=== PATIENT | female | born 1980 | race American Indian/Alaskan Native ===

== ENCOUNTER 2018-09-28 09:17 | Inpatient (IN) | payer MEDICAID, MEDICARE, OTHER ==
[2018-09-28] MEDS ORDERED: NACL 0.9% 1000 ML 1,000 ML IV ONE ×2 (09:39→11:48)
[2018-09-28 10:13] LABS: Mean Corpuscular HGB Conc 28 % (30-34); Mean Corpuscular Volume 102 fl (79-97); Platelet Count 602 K/mm3 (140-440); Red Blood Count 4.99 M/mm3 (3.65-5.03); Red Cell Distribution Width 15.5 % (13.2-15.2)
[2018-09-28 10:17] LABS: Hematocrit 51.1 % (30.3-42.9); Hemoglobin 14.4 gm/dl (10.1-14.3)
[2018-09-28 10:31] LABS: Albumin 4.2 g/dL (3.9-5); Calcium 9.2 mg/dL (8.4-10.2)
[2018-09-28] MEDS ORDERED: D50W (25GM) Syringe IV PRN ×3 (10:44→11:50)
--- NOTE | 2018-09-28 10:57 | Emergency Department Report ---
HPI - General Chief Complaint: Hyperglycemia Time Seen by Provider: 09/28/18 09:34 - HPI HPI: 38-year-old demented female presents to the emergency department via EMS secondary to altered mental status and elevated blood sugar. The patient has never been here before and it is unknown whether she has any past medical history. However there is some to triage notes say that she has a history of diabetes and hypertension. Accu-Chek was critical high. Patient is awake but is completely altered and therefore is a poor historian. ED Past Medical Hx - Past Medical History Previous Medical History?: Yes Hx Hypertension: Yes Hx Diabetes: Yes - Surgical History Past Surgical History?: No - Social History Smoking Status: Unknown if ever smoked ED Review of Systems ROS: Stated complaint: DKA Other details as noted in HPI Comment: Unobtainable due to pts medical conditions Physical Exam - Physical Exam Vital Signs: Vital Signs 09/28/18 09/28/18 09/28/18 09:22 09:30 09:46 Pulse Rate 124 H 130 H Respiratory 18 32 H Rate Blood Pressure 166/95 166/95 O2 Sat by Pulse 98 98 Oximetry 09/28/18 09/28/18 09/28/18 10:00 10:16 10:32 Pulse Rate 128 H 126 H 107 H Respiratory 27 H 31 H 26 H Rate Blood Pressure 166/95 166/95 166/95 O2 Sat by Pulse 98 98 Oximetry 09/28/18 10:46 Pulse Rate 126 H Respiratory 28 H Rate Blood Pressure 136/53 O2 Sat by Pulse 100 Oximetry Physical Exam: GENERAL: Patient is ill-appearing and confused. HEENT: Normocephalic. Atraumatic. Patient has moist mucous membranes. EYES: Extraocular motions are intact. Pupils are equal and reactive to light bilaterally. NECK: Supple. Trachea is midline. CHEST/LUNGS: Clear to auscultation. There is no respiratory distress noted. HEART/CARDIOVASCULAR: Regular. There is moderate tachycardia. There is no obvious murmur. ABDOMEN: Abdomen is soft, nontender. Patient has normal bowel sounds. Obese habitus. SKIN: Skin is warm and dry. NEURO: Patient is awake but confused. Withdraws from painful stimuli. MUSCULOSKELETAL: There is no tenderness or deformity. There is no limitation range of motion. There is no evidence of acute injury. ED Course Vital Signs 09/28/18 09/28/18 09/28/18 09:22 09:30 09:46 Pulse Rate 124 H 130 H Respiratory 18 32 H Rate Blood Pressure 166/95 166/95 O2 Sat by Pulse 98 98 Oximetry 09/28/18 09/28/18 09/28/18 10:00 10:16 10:32 Pulse Rate 128 H 126 H 107 H Respiratory 27 H 31 H 26 H Rate Blood Pressure 166/95 166/95 166/95 O2 Sat by Pulse 98 98 Oximetry 09/28/18 10:46 Pulse Rate 126 H Respiratory 28 H Rate Blood Pressure 136/53 O2 Sat by Pulse 100 Oximetry - Central Line Placement Right Femoral Consent Obtained: emergent situation Time Out Performed: Yes Patient Placed on Monitor/Pulse Ox: Yes MD Prep: mask, gown, gloves Central Line Prep: Chlorhexidine scrub Local Anesthesia Used: Lidocaine 1% Amount of Anesthesia Used (mls): 3 Ultrasound Used for Placement: Yes Central Line Lumen Inserted: triple Bloods Obtained for Lab: Yes Central Line Position: good blood return, all ports aspirated, flus, sutured in place with nyl Dressing Applied: Tegaderm, sterile gauze/tape Patient Tolerated Procedure: well Complications: none ED Medical Decision Making - Lab Data Result diagrams: 09/28/18 09:49 09/28/18 12:44 - EKG Data -: EKG Interpreted by Me EKG shows normal: sinus rhythm, axis, intervals (prolonged QTC), QRS complexes, ST-T waves (early repolarization) Rate: tachycardia (130 bpm) - EKG Data When compared to previous EKG there are: previous EKG unavailable Interpretation: other (sinus tachycardia, prolonged QTC, repolarization to the septal leads) - Radiology Data Radiology results: image reviewed interpreted by me: Chest x-ray does not show any pneumothorax, pleural effusion, pneumonia or obvious focal consolidation. - Medical Decision Making Patient presents with altered mental status and elevated blood sugar seen on Accu-Chek. Patient has a venous pH of 6.85, blood sugar greater than 1000, elevated anion gap of almost 50, hyperkalemia with potassium of 8.1 and an ammonia 111. A central line was placed for further venous access. Patient was started on insulin drip. Blood cultures were sent and patient started on antibiotics empirically with a 29,000 white count. The patient has been admitted to the ICU and has been accepted for admission by the hospitalist, Dr. Kevin. The stiff straw hat washer, Dr. Prince, has been notified. Critical Care Time: Yes Critical care time in (mins) excluding proc time.: 35 Critical care attestation.: If time is entered above; I have spent that time in minutes in the direct care of this critically ill patient, excluding procedure time. Critical care time was spent on this patient and doing her initial evaluation, multiple evaluations, ordering interpretation of labs and imaging, ordering of insulin drip, IV fluid resuscitation. This does not include the time spent doing the central line procedure. Critical Care Time: 35 minutes ED Disposition Clinical Impression: Hyperkalemia, Hyperammonemia, SIRS (systemic inflammatory response syndrome) Diabetic ketoacidosis Qualifiers: Diabetes mellitus type: type 1 Diabetes mellitus complication detail: without coma Qualified Code(s): E10.10 - Type 1 diabetes mellitus with ketoacidosis without coma Altered mental status Qualifiers: Altered mental status type: transient alteration of awareness Qualified Code(s): R40.4 - Transient alteration of awareness Leukocytosis Qualifiers: Leukocytosis type: unspecified Qualified Code(s): D72.829 - Elevated white blood cell count, unspecified Disposition: DC-09 OP ADMIT IP TO THIS HOSP Is pt being admited?: Yes Condition: Serious Time of Disposition: 14:08
[2018-09-28 11:14] LABS: Myelocytes # (Manual) 0.3 K/mm3; Total Cells Counted 100
[2018-09-28 11:15] LABS: Eosinophils % (Manual) 0 % (0.0-4.3)
[2018-09-28 11:16] LABS: Platelet Estimate Consistent w Auto; RBC Morphology Normal
[2018-09-28] MEDS ORDERED: HumuLIN R 100 UNITS in NACL 0.9% 99 ML IV SCH ×2 (11:30→12:00)
[2018-09-28] MEDS ORDERED: CALCIUM GLUCONATE 1,000 MG in NACL 0.9% 100 ML IV ONE (11:30)
[2018-09-28] MEDS ORDERED: NACL 0.9% 1000 ML 4,000 ML IV ONE (11:50)
[2018-09-28] MEDS ORDERED: SODIUM CHLORIDE FLUSH SYRINGE 10 ML IV PRN (11:50)
--- NOTE | 2018-09-28 11:53 | History and Physical Report ---
History of Present Illness Chief complaint: confused History of present illness: 38 YO Female with DM, HTN present to ED for evaluation. Pt is confused and stuporous and unable to provide history. Pt history taken from EMS, and ED staff. As per staff, EMS notified for confusion. Upon arrival patient found to be confused with elevated blood glucose level. Pt transported to [facility] for further care and evaluation. Pt seen and evaluated in ED and found to have DKA, Sepsis, Encophalopathy, Acidosis, and Acute Renal Failure. Pt admitted to ICU and initiated on Sepsis and DKA protocols. No further history obtainable. Past History Past Medical History: diabetes, hypertension Past Surgical History: No surgical history, Other (reviewed) Social history: single Family history: diabetes, hypertension Medications and Allergies Allergies Allergy/AdvReac Type Severity Reaction Status Date / Time No Known Allergies Allergy Unverified 09/28/18 10:50 Home Medications Medication Instructions Recorded Confirmed Last Taken Type Unobtainable 09/28/18 09/28/18 Unknown History Active Meds: Active Medications Dextrose (D50w (25gm) Syringe) 0 ml IV PRN PRN PRN Reason: Hypoglycemia Calcium Gluconate 1,000 mg/ (Sodium Chloride) 110 mls @ 220 mls/hr IV ONCE ONE Stop: 09/28/18 11:59 Insulin Human Regular 100 (units/ Sodium Chloride) 100 mls @ 7 mls/hr IV TITR JL; Protocol Sodium Chloride (Nacl 0.9% 1000 Ml) 1,000 mls @ 999 mls/hr IV BOLUS ONE Stop: 09/28/18 12:48 Review of Systems ROS unobtainable: due to mental status Exam - Constitutional Vitals: Temp Pulse Resp BP Pulse Ox 126 H 28 H 136/53 100 09/28/18 10:46 09/28/18 10:46 09/28/18 10:46 09/28/18 10:46 General appearance: Present: severe distress - EENT Eyes: Present: miosis - Neck Neck: Present: supple, normal ROM - Respiratory Respiratory effort: labored Respiratory: bilateral: diminished, rhonchi - Cardiovascular Rhythm: other (tachycardia) Heart Sounds: Present: S1 & S2. Absent: rub, click - Extremities Extremities: pulses symmetrical, No edema Peripheral Pulses: abnormal (capillary refill greater than 3.5 seconds) - Abdominal General gastrointestinal: Present: soft, non-tender, non-distended, normal bowel sounds Female genitourinary: Present: normal - Integumentary Integumentary: Present: clear, dry, clammy, decreased turgor - Musculoskeletal Musculoskeletal: generalized weakness - Psychiatric Psychiatric: no appropriate mood/affect, no intact judgment & insight, no memory intact, no cooperative - Neurologic Neurologic: moves all extremities, no gait normal Results - Labs CBC & Chem 7: 09/28/18 09:49 09/28/18 16:57 Labs: Abnormal lab results 09/28/18 09/28/18 09/28/18 Range/Units 09:49 09:49 09:49 WBC 29.7 H (4.5-11.0) K/mm3 Hgb 14.4 H (10.1-14.3) gm/dl Hct 51.1 H (30.3-42.9) % MCV 102 H (79-97) fl MCHC 28 L (30-34) % RDW 15.5 H (13.2-15.2) % Plt Count 602 H (140-440) K/mm3 Seg Neuts % (Manual) 83.0 H (40.0-70.0) % Lymphocytes % (Manual) 8.0 L (13.4-35.0) % Seg Neutrophils # Man 24.7 H (1.8-7.7) K/mm3 Monocytes # (Manual) 2.1 H (0.0-0.8) K/mm3 Basophils # (Manual) 0.3 H (0.0-0.1) K/mm3 VBG pH (7.320-7.420) Sodium 126 L (137-145) mmol/L Potassium 8.2 H* (3.6-5.0) mmol/L Chloride 81.7 L (98-107) mmol/L Carbon Dioxide 4 L* (22-30) mmol/L BUN 31 H (7-17) mg/dL Creatinine 1.9 H (0.7-1.2) mg/dL Glucose 1000 H* (65-100) mg/dL Phosphorus (2.5-4.5) mg/dL Ammonia 114.0 H (25-60) umol/L Total Protein 8.5 H (6.3-8.2) g/dL 09/28/18 09/28/18 Range/Units 09:49 11:03 WBC (4.5-11.0) K/mm3 Hgb (10.1-14.3) gm/dl Hct (30.3-42.9) % MCV (79-97) fl MCHC (30-34) % RDW (13.2-15.2) % Plt Count (140-440) K/mm3 Seg Neuts % (Manual) (40.0-70.0) % Lymphocytes % (Manual) (13.4-35.0) % Seg Neutrophils # Man (1.8-7.7) K/mm3 Monocytes # (Manual) (0.0-0.8) K/mm3 Basophils # (Manual) (0.0-0.1) K/mm3 VBG pH 6.874 L* (7.320-7.420) Sodium (137-145) mmol/L Potassium (3.6-5.0) mmol/L Chloride 74.8 L (98-107) mmol/L Carbon Dioxide (22-30) mmol/L BUN 31 H (7-17) mg/dL Creatinine 1.8 H (0.7-1.2) mg/dL Glucose (65-100) mg/dL Phosphorus 9.70 H (2.5-4.5) mg/dL Ammonia (25-60) umol/L Total Protein (6.3-8.2) g/dL Assessment and Plan - Patient Problems (1) Sepsis Current Visit: Yes Status: Acute Qualifiers: Sepsis type: sepsis due to unspecified organism Qualified Code(s): A41.9 - Sepsis, unspecified organism Plan to address problem: IV antibiotic therapy, IVF resuscitation therapy, CBC, CMP, Chest x ray, urinalysis, monitor uop q shift, serial lactic acid level (2) Acidosis Current Visit: Yes Status: Acute Plan to address problem: IVF resuscitation therapy, serial lactic acid, IV bicarbonate therapy (3) Diabetic ketoacidosis Current Visit: Yes Status: Acute Qualifiers: Diabetes mellitus type: type 1 Diabetes mellitus complication detail: without coma Qualified Code(s): E10.10 - Type 1 diabetes mellitus with ketoacidosis without coma Plan to address problem: DKA protocol: Insulin drip, IVF resuscitation therapy, serial bmp, monitor anion gap, monitor uop q shift, The high probability of a clinically significant, sudden or life threatening deterioration of the [Endocrine, neuro, respiratory, renal] system(s) required my full and direct attention, intervention and personal management. The aggregate critical care time was [65] minutes. This time is in addition to time spent performing reported procedures but includes the following: [x] Data Review and interpretation [x] Patient assessment and monitoring of vital signs [x] Documentation [x] Medication orders and management (4) DVT prophylaxis Current Visit: Yes Status: Acute Plan to address problem: SCD to BLE while in bed
[2018-09-28] MEDS ORDERED: NACL 0.9% 1000 ML IV ONE (11:54)
[2018-09-28] MEDS ORDERED: LEVAQUIN 750MG/150ML 750 MG/150 ML BAG IV ONE (11:54)
[2018-09-28] MEDS ORDERED: VANCOMYCIN 1,500 MG in NACL 0.9% 500 ML 500 ML IV ONE (11:54)
[2018-09-28] MEDS ORDERED: SODIUM BICARBONATE IV ONE ×4 (11:56→21:00)
--- NOTE | 2018-09-28 12:25 | XRay Report ---
AP CHEST: HISTORY: Dyspnea AP view of the chest demonstrates a normal mediastinal and cardiac contour with clear lungs and normal bony and soft tissue structures. IMPRESSION: Unremarkable AP chest.
[2018-09-28] MEDS ORDERED: ROCEPHIN/NS 1 GM/50 ML 1 GM/50 ML BAG IV ONE (12:30)
[2018-09-28 12:32] LABS: Blood Urea Nitrogen TNR mg/dL (7-17)
[2018-09-28 12:33] LABS: BUN/Creatinine Ratio TNR; Calcium TNR mg/dL (8.4-10.2); Hemolysis Index TNR
[2018-09-28 13:21] LABS: Calcium 7.9 mg/dL (8.4-10.2)
[2018-09-28 13:23] LABS: Bacteria,Urine 1+ /HPF (Negative); Bilirubin,Urine NEG (Negative); Blood,Urine SM (Negative); Color,Urine Straw (Yellow); Mucus,Urine FEW /HPF; RBC,Urine < 1.0 /HPF (0.0-6.0); Urobilinogen,Urine < 2.0 mg/dL (<2.0)
[2018-09-28] MEDS ORDERED: NACL 0.9% 1000 ML 4,000 ML ONE (13:28)
[2018-09-28 13:34] LABS: Amphetamine Screen,Urine PRESUMPTIVE NEGATIVE; Benzodiazepines Screen,Urine PRESUMPTIVE NEGATIVE; Cannabinoid Screen,Urine PRESUMPTIVE NEGATIVE; Cocaine Screen,Urine PRESUMPTIVE NEGATIVE; Methadone Screen,Urine PRESUMPTIVE NEGATIVE; Opiate Screen,Urine PRESUMPTIVE NEGATIVE
[2018-09-28] MEDS ORDERED: ZOFRAN IV ONE (13:49)
[2018-09-28] MEDS ORDERED: ZOFRAN ONE (13:52)
[2018-09-28 14:23] LABS: Calcium 6.8 mg/dL (8.4-10.2)
--- NOTE | 2018-09-28 14:45 | Consultation ---
History of Present Illness Consult date: 09/28/18 Requesting physician: MARISA PINEDA Reason for consult: other (DKA; EVELIN; Hyperkalemia) History of present illness: PULMONARY/CCM CONSULT NOTE (Full dictation # [id number]) Please see dictated notes for full details Medications and Allergies Allergies Allergy/AdvReac Type Severity Reaction Status Date / Time No Known Allergies Allergy Unverified 09/28/18 10:50 Active Meds: Active Medications Dextrose (D50w (25gm) Syringe) 0 ml IV PRN PRN PRN Reason: Hypoglycemia Dextrose (D50w (25gm) Syringe) 0 ml IV ONCE PRN PRN Reason: Hypoglycemia Insulin Human Regular 100 (units/ Sodium Chloride) 100 mls @ 7 mls/hr IV TITR JL; Protocol Sodium Chloride (Nacl 0.9% 1000 Ml) 4,000 mls @ 999 mls/hr IV BOLUS ONE Stop: 09/28/18 15:50 Last Admin: 09/28/18 13:34 Dose: 999 mls/hr Documented by: Aztreonam (Azactam/Ns 1 Gm/50 Ml) 1 gm in 50 mls @ 50 mls/hr IV Q8HR JL; Protocol Sodium Chloride (Sodium Chloride Flush Syringe 10 Ml) 10 ml IV BID JL Sodium Chloride (Sodium Chloride Flush Syringe 10 Ml) 10 ml IV PRN PRN PRN Reason: LINE FLUSH Physical Examination Vital signs: Vital Signs Pulse Ox 98 09/28/18 09:22 Results - Laboratory Findings CBC and BMP: 09/28/18 09:49 09/28/18 13:48 Abnormal lab findings: Abnormal Labs 09/28/18 09/28/18 09/28/18 09:28 09:49 09:49 WBC 29.7 H Hgb 14.4 H Hct 51.1 H MCV 102 H MCHC 28 L RDW 15.5 H Plt Count 602 H Seg Neuts % (Manual) 83.0 H Lymphocytes % (Manual) 8.0 L Seg Neutrophils # Man 24.7 H Monocytes # (Manual) 2.1 H Basophils # (Manual) 0.3 H VBG pH Sodium 126 L Potassium 8.2 H* Chloride 81.7 L Carbon Dioxide 4 L* BUN 31 H Creatinine 1.9 H Glucose 1000 H* POC Glucose > 500 H Lactic Acid Calcium Phosphorus Magnesium Ammonia Total Protein 8.5 H 09/28/18 09/28/18 09/28/18 09:49 09:49 12:44 WBC Hgb Hct MCV MCHC RDW Plt Count Seg Neuts % (Manual) Lymphocytes % (Manual) Seg Neutrophils # Man Monocytes # (Manual) Basophils # (Manual) VBG pH 6.874 L* Sodium Potassium Chloride Carbon Dioxide BUN Creatinine Glucose POC Glucose Lactic Acid Calcium Phosphorus 9.60 H Magnesium 2.40 H Ammonia 114.0 H Total Protein 09/28/18 09/28/18 09/28/18 12:44 12:44 13:48 WBC Hgb Hct MCV MCHC RDW Plt Count Seg Neuts % (Manual) Lymphocytes % (Manual) Seg Neutrophils # Man Monocytes # (Manual) Basophils # (Manual) VBG pH Sodium 136 L D 146 H D Potassium 7.0 H* 5.4 H D Chloride 95.3 L Carbon Dioxide 3 L* 4 L* BUN 31 H 28 H Creatinine 1.8 H 1.4 H Glucose 896 H* 595 H* POC Glucose Lactic Acid 3.40 H* Calcium 7.9 L 6.8 L Phosphorus Magnesium Ammonia Total Protein
[2018-09-28] MEDS: AZACTAM/NS 1 GM/50 ML 1 GM/50 ML VIAL IV SCH ×2 (15:38→23:04)
[2018-09-28 15:55] LABS: BUN/Creatinine Ratio 19; Blood Urea Nitrogen 23 mg/dL (7-17); Hemolysis Index 8
[2018-09-28 17:37] LABS: BUN/Creatinine Ratio 20; Blood Urea Nitrogen 22 mg/dL (7-17); Calcium 6.5 mg/dL (8.4-10.2); Hemolysis Index 26
[2018-09-28] MEDS ORDERED: MORPHINE IV ONE (19:28)
[2018-09-28] MEDS ORDERED: MORPHINE ONE (19:32)
[2018-09-28] MEDS ORDERED: D5W/0.45% NACL/KCL 20 MEQ 20 MEQ/1,000 ML BAG IV ONE (20:20)
[2018-09-28] MEDS: D5W/0.45% NACL/KCL 20 MEQ 20 MEQ/1,000 ML BAG IV SCH (20:24)
[2018-09-28] MEDS ORDERED: D5/0.45NS 1,000 ML IV SCH (21:00)
[2018-09-28] MEDS ORDERED: D5W/0.45% NACL/KCL 20 MEQ 20 MEQ/1,000 ML BAG IV SCH (21:00)
[2018-09-28] MEDS: SODIUM CHLORIDE FLUSH SYRINGE 10 ML IV SCH (21:45)
[2018-09-28 22:21] LABS: BUN/Creatinine Ratio 17; Blood Urea Nitrogen 17 mg/dL (7-17); Calcium 6.9 mg/dL (8.4-10.2); Hemolysis Index 191
--- NOTE | 2018-09-28 23:19 | Consultation ---
PULMONARY CRITICAL CARE CONSULTATION NOTE CONSULTING PHYSICIAN: José Jansen, Emergency Room physician. REASON FOR CONSULTATION: Diabetic ketoacidosis, severe hyperkalemia, acute kidney injury. CHIEF COMPLAINT AND HISTORY OF PRESENT ILLNESS: The patient is a 38-year-old female with past medical history significant for a diagnosis of diabetes, who was brought into the Emergency Room via EMS secondary to altered mental status and hyperglycemia, not much more history was given in the Emergency Room. She was altered, hyperventilating and unable to give much of a history. Evaluation in the Emergency Room revealed diabetic ketoacidosis with severe hyperkalemia. We are asked to assist with further management. When I stopped by to see her, she was resting in the Emergency Room bed. She was on IV insulin drip going at 8 units per hour. She was now able to answer yes or no by nodding her head, but still it is significant Kussmaul's respiration with regards to tobacco use/abuse history that is unknown. This is much of the history of presentation as I am able to get right now. PAST MEDICAL HISTORY: Diabetes, hypertension. She is obese. PAST SURGICAL HISTORY: Unknown. MEDICATIONS: She was on at the time I stopped by to see were reviewed, pertinent medications include the following: She was started on Azactam 1 gram IV q.8h. Insulin drip was going at 8 units per hour. She had gotten I believe about 4 liters of normal saline IV bolus. She had received calcium gluconate earlier around, also received some IV insulin and I believe the picker / packer has been consulted. She also received some sodium bicarbonate, I see about 3 amps of sodium bicarbonate given IV push. ALLERGIES: No known drug allergies. DIET: Obese lady, acute weight loss or gain; history is unknown. FAMILY AND SOCIAL HISTORY: It appears she lives in the community; however, alcohol, tobacco, or illicit drug use or abuse. Family history is unobtainable. REVIEW OF SYSTEMS: Unobtainable secondary to patient's medical and mental condition. Since she has been here, no gross hematochezia or melena, no gross hematuria, no hematemesis, no witnessed seizures. No new onset focal weakness. Review of systems otherwise unobtainable or as in body of history above. PHYSICAL EXAMINATION: VITAL SIGNS: At presentation, she was described as afebrile. Pulse was 124, respiratory rate was about 34 when I saw her, blood pressure was 166/95, O2 sats 98%. At that time, inspired oxygen concentration was not recorded. When I stopped by to see her, she was on I believe 2 liters nasal cannula, on 100% FiO2. GENERAL: She is slightly obese young female, normocephalic, atraumatic with moderately increased respiratory effort at rest. HEAD, EYES, EARS, NOSE AND THROAT: She is anicteric. No conjunctival erythema. Oropharynx is dry. No gross jugular venous distention. No palpable lymph nodes in the supraclavicular or submandibular lymph node chains. No thyromegaly. LUNGS: Auscultation of both lung carr unremarkable. Lungs were clear bilaterally with good bilateral air movement. HEART: Heart sounds 1 and 2 are heard. They were regular in rate and rhythm without any rubs or murmurs. ABDOMEN: Soft, full, bowel sounds are positive, mildly tender. No palpable hepatosplenomegaly. EXTREMITIES: Without overt digital clubbing or cyanosis and no pedal edema. Dorsalis pedis pulses are palpable bilaterally. NEUROLOGIC: Pupils were equal and round, about 3 mm, reactive to light. Extraocular muscle movements appeared intact. She had spontaneous movement to all extremities. The skin was of poor turgor and she had mottling to both her lower extremities bilaterally. No obvious cellulitis or rash. LABORATORY AND DIAGNOSTIC DATA: From my review, admission white cell count 29,700 with hemoglobin of 14.4, hematocrit of 51.1, platelet count was 602. No band forms reported. Venous blood gas showed a pH of 6.87. Serum sodium was 126, potassium was 8.2, chloride 82, bicarbonate was 4, BUN was 31, creatinine was 1.9 and glucose was 1000. Lactic acid level elevated at 3.4. Phosphorus and magnesium both elevated. Ammonia was also elevated at 114. Otherwise, liver function tests were essentially within normal limits. Urinalysis, negative for nitrites and leukocyte esterase and only 1 white cell per high power field. Urine drug screen was presumptive negative. Alcohol level was nondetectable. Two sets of blood cultures have been drawn, no growth to date. Chest x-ray was reviewed. I have reviewed the images myself as well as the radiologist's interpretation. I do agree essentially no acute process. ASSESSMENT: 1. Acute encephalopathy secondary likely to diabetic ketoacidosis. 2. Diabetic ketoacidosis. 3. Acute kidney injury. 4. Hyperkalemia that is resolving, potassium now down to 7.0. 5. Leukocytosis. 6. Lactic acidosis. 7. Obesity. PLAN: I do feel the primary instigating process here is the diabetic ketoacidosis. We will continue medical management for the hyperkalemia. A 12-lead EKG if one has not been done will be ordered. Otherwise, I will review it right away. Oxygen will be weaned to keep sats greater than or equal to about 90%. Aspiration precautions will be maintained. I do feel there might have been some element of hypotension along the way either prior to this hospitalization more likely that might explain the mottling, however, with this degree of severity and with leukocytosis, I agree with empiric broad-spectrum antibiotic therapy. We will deescalate that based on the results of clinical and microbiologic data. I will also get a CRP level to blanket winder helper a clinical decision making in de-escalation. She will remain n.p.o. for now. Clinically, her mental status is beginning to improve. According to the nurse, her breathing is also slowing down. She will be placed on GI prophylaxis. DVT prophylaxis also. Flu and pneumonia vaccination will be addressed per protocol. She will continue on the IV insulin therapy, diabetic ketoacidosis protocol has been instituted. We will continue Accu-Cheks and change IV fluids as necessary based on the serum glucose level. She will have serial BMP levels also. We will keep an eye on the anion gap and we will also keep an eye on her serum electrolytes and correct as necessary. Thank you very much for the consult. We will follow along and make further recommendations as picture progresses/becomes clearer. She is critically ill at high risk of or decompensation from the renal as well as cardiovascular systems. At this time, I have spent about 35 minutes of critical care time without overlap and excluding any procedural time that may be necessary. She will be offered admission in the intensive care unit. JOB# [id number] ROSA/GIOVANY REAL
[2018-09-29] MEDS ORDERED: D5W/0.45% NACL/KCL 20 MEQ 20 MEQ/1,000 ML BAG IV ONE (04:48)
[2018-09-29 05:15] LABS: BUN/Creatinine Ratio 12; Blood Urea Nitrogen 13 mg/dL (7-17); Calcium 7.5 mg/dL (8.4-10.2); Hemolysis Index 10
[2018-09-29] MEDS: AZACTAM/NS 1 GM/50 ML 1 GM/50 ML VIAL IV SCH (06:08)
[2018-09-29] MEDS: D5W/0.45% NACL/KCL 20 MEQ 20 MEQ/1,000 ML BAG IV SCH (06:59)
[2018-09-29 08:59] LABS: BUN/Creatinine Ratio 11; Blood Urea Nitrogen 13 mg/dL (7-17); Calcium 7.6 mg/dL (8.4-10.2); Hemolysis Index 22
[2018-09-29] MEDS: SODIUM CHLORIDE FLUSH SYRINGE 10 ML IV SCH ×2 (10:15→21:27)
[2018-09-29] MEDS ORDERED: APRESOLINE IV PRN (11:06)
[2018-09-29] MEDS ORDERED: NORMODYNE IV PRN (11:06)
[2018-09-29] MEDS: ZOFRAN IV PRN ×2 (11:35→19:09)
[2018-09-29] MEDS ORDERED: ZOFRAN ONE (11:44)
[2018-09-29] MEDS: HumaLOG SUB-Q SCH ×3 (12:46→22:27)
[2018-09-29] MEDS ORDERED: MAXIPIME/NS 2 GM/100 ML 2 GM/100 ML BAG IV SCH (14:00)
[2018-09-29] MEDS ORDERED: MAXIPIME/NS 1 GM/100 ML 1 GM/100 ML BAG IV SCH (14:00)
[2018-09-29] MEDS ORDERED: APRESOLINE ONE (14:13)
[2018-09-29] MEDS ORDERED: MAXIPIME/NS 1 GM/100 ML 1 GM/100 ML BAG IV ONE (14:34)
--- NOTE | 2018-09-29 14:47 | Progress Note ---
Assessment and Plan Assessment and plan: 38-year-old woman history of hypertension and diabetes who presented confusion, elevated glucose, and malaise. She also had been complaining of high glucose and suprapubic tenderness. Problems DKA Unconscious with diabetes Sepsis UTI Hypernatremia Metabolic acidosis Dehydration Nausea Plan Continue insulin drip, will transition to sliding scale insulin and subcutaneous insulin if continues to improve Continue antibiotics, follow up urine cultures Treated w hypotonic IV fluids. Antiemetics as needed DVT prophylaxis chemical Critical care time 35 minutes History Interval history: She is complaining of suprapubic tenderness, and generalized unwellness, some chills. She is also complaining of nausea, no vomiting Denies fevers, denies chest pain, denies shortness of breath, Hospitalist Physical - Physical exam Narrative exam: General.: Appears ill, hirsutism noted HEENT: Moist mucous membranes, extraocular muscles intact, no lymphadenopathy Neck: supple Cardiac: S1-S2 heard Lungs: clear to auscultation bilaterally Abdomen: soft , nontender, nondistended, bowel sounds positive Extremities: no edema clubbing or cyanosis Purulent urine seen in Sellers catheter Skin: no rash or lesions Neurologic: no gross focal deficits Psych: calm, and cooperative - Constitutional Vitals: Temp Pulse Resp BP Pulse Ox 115 H 32 H 110/80 100 09/29/18 14:02 09/29/18 14:02 09/29/18 14:02 09/29/18 14:02 General appearance: Present: severe distress Results - Labs CBC & Chem 7: 09/28/18 09:49 09/29/18 13:51 Labs: Laboratory Last Values WBC 29.7 K/mm3 (4.5-11.0) H 09/28/18 09:49 RBC 4.99 M/mm3 (3.65-5.03) 09/28/18 09:49 Hgb 14.4 gm/dl (10.1-14.3) H 09/28/18 09:49 Hct 51.1 % (30.3-42.9) H 09/28/18 09:49 MCV 102 fl (79-97) H 09/28/18 09:49 MCH 29 pg (28-32) 09/28/18 09:49 MCHC 28 % (30-34) L 09/28/18 09:49 RDW 15.5 % (13.2-15.2) H 09/28/18 09:49 Plt Count 602 K/mm3 (140-440) H 09/28/18 09:49 Add Manual Diff Complete 09/28/18 09:49 Total Counted 100 09/28/18 09:49 Seg Neuts % (Manual) 83.0 % (40.0-70.0) H 09/28/18 09:49 Band Neutrophils % 0 % 09/28/18 09:49 Lymphocytes % (Manual) 8.0 % (13.4-35.0) L 09/28/18 09:49 Reactive Lymphs % (Man) 0 % 09/28/18 09:49 Monocytes % (Manual) 7.0 % (0.0-7.3) 09/28/18 09:49 Eosinophils % (Manual) 0 % (0.0-4.3) 09/28/18 09:49 Basophils % (Manual) 1.0 % (0.0-1.8) 09/28/18 09:49 Metamyelocytes % 0 % 09/28/18 09:49 Myelocytes % 1.0 % 09/28/18 09:49 Promyelocytes % 0 % 09/28/18 09:49 Blast Cells % 0 % 09/28/18 09:49 Nucleated RBC % Not Reportable 09/28/18 09:49 Seg Neutrophils # Man 24.7 K/mm3 (1.8-7.7) H 09/28/18 09:49 Band Neutrophils # 0.0 K/mm3 09/28/18 09:49 Lymphocytes # (Manual) 2.4 K/mm3 (1.2-5.4) 09/28/18 09:49 Abs React Lymphs (Man) 0.0 K/mm3 09/28/18 09:49 Monocytes # (Manual) 2.1 K/mm3 (0.0-0.8) H 09/28/18 09:49 Eosinophils # (Manual) 0.0 K/mm3 (0.0-0.4) 09/28/18 09:49 Basophils # (Manual) 0.3 K/mm3 (0.0-0.1) H 09/28/18 09:49 Metamyelocytes # 0.0 K/mm3 09/28/18 09:49 Myelocytes # 0.3 K/mm3 09/28/18 09:49 Promyelocytes # 0.0 K/mm3 09/28/18 09:49 Blast Cells # 0.0 K/mm3 09/28/18 09:49 WBC Morphology Not Reportable 09/28/18 09:49 Hypersegmented Neuts Not Reportable 09/28/18 09:49 Hyposegmented Neuts Not Reportable 09/28/18 09:49 Hypogranular Neuts Not Reportable 09/28/18 09:49 Smudge Cells Not Reportable 09/28/18 09:49 Toxic Granulation Not Reportable 09/28/18 09:49 Toxic Vacuolation Not Reportable 09/28/18 09:49 Dohle Bodies Not Reportable 09/28/18 09:49 Pelger-Huet Anomaly Not Reportable 09/28/18 09:49 Kerry Rods Not Reportable 09/28/18 09:49 Platelet Estimate Consistent w auto 09/28/18 09:49 Clumped Platelets Not Reportable 09/28/18 09:49 Plt Clumps, EDTA Not Reportable 09/28/18 09:49 Large Platelets Not Reportable 09/28/18 09:49 Giant Platelets Not Reportable 09/28/18 09:49 Platelet Satelliting Not Reportable 09/28/18 09:49 Plt Morphology Comment Not Reportable 09/28/18 09:49 RBC Morphology Normal 09/28/18 09:49 Dimorphic RBCs Not Reportable 09/28/18 09:49 Polychromasia Not Reportable 09/28/18 09:49 Hypochromasia Not Reportable 09/28/18 09:49 Poikilocytosis Not Reportable 09/28/18 09:49 Anisocytosis Not Reportable 09/28/18 09:49 Microcytosis Not Reportable 09/28/18 09:49 Macrocytosis Not Reportable 09/28/18 09:49 Spherocytes Not Reportable 09/28/18 09:49 Pappenheimer Bodies Not Reportable 09/28/18 09:49 Sickle Cells Not Reportable 09/28/18 09:49 Target Cells Not Reportable 09/28/18 09:49 Tear Drop Cells Not Reportable 09/28/18 09:49 Ovalocytes Not Reportable 09/28/18 09:49 Helmet Cells Not Reportable 09/28/18 09:49 [place] Bodies Not Reportable 09/28/18 09:49 Glade Rings Not Reportable 09/28/18 09:49 Dejuan Cells Not Reportable 09/28/18 09:49 Bite Cells Not Reportable 09/28/18 09:49 Crenated Cell Not Reportable 09/28/18 09:49 Elliptocytes Not Reportable 09/28/18 09:49 Acanthocytes (Spur) Not Reportable 09/28/18 09:49 Rouleaux Not Reportable 09/28/18 09:49 Hemoglobin C Crystals Not Reportable 09/28/18 09:49 Schistocytes Not Reportable 09/28/18 09:49 Malaria parasites Not Reportable 09/28/18 09:49 Santino Bodies Not Reportable 09/28/18 09:49 Hem Pathologist Commnt No 09/28/18 09:49 VBG pH 6.874 (7.320-7.420) L* 09/28/18 09:49 Sodium 152 mmol/L (137-145) H 09/29/18 08:23 Potassium 3.8 mmol/L (3.6-5.0) 09/29/18 08:23 Chloride 120.7 mmol/L (98-107) H 09/29/18 08:23 Carbon Dioxide 15 mmol/L (22-30) L 09/29/18 08:23 Anion Gap 20 mmol/L 09/29/18 08:23 BUN 13 mg/dL (7-17) 09/29/18 08:23 Creatinine 1.2 mg/dL (0.7-1.2) 09/29/18 08:23 Estimated GFR > 60 ml/min 09/29/18 08:23 BUN/Creatinine Ratio 11 % 09/29/18 08:23 Glucose 126 mg/dL (65-100) H 09/29/18 08:23 POC Glucose 124 (70-105) H 09/29/18 11:43 Lactic Acid 2.70 mmol/L (0.7-2.0) H* 09/29/18 07:28 Calcium 7.6 mg/dL (8.4-10.2) L 09/29/18 08:23 Phosphorus 9.60 mg/dL (2.5-4.5) H 09/28/18 12:44 Magnesium 2.40 mg/dL (1.7-2.3) H 09/28/18 12:44 Total Bilirubin 0.20 mg/dL (0.1-1.2) 09/28/18 09:49 AST 11 units/L (5-40) 09/28/18 09:49 ALT 8 units/L (7-56) 09/28/18 09:49 Alkaline Phosphatase 117 units/L (35-129) 09/28/18 09:49 Ammonia 114.0 umol/L (25-60) H 09/28/18 09:49 C-Reactive Protein 2.10 mg/dL (0.00-1.30) H 09/28/18 15:17 Total Protein 8.5 g/dL (6.3-8.2) H 09/28/18 09:49 Albumin 4.2 g/dL (3.9-5) 09/28/18 09:49 Albumin/Globulin Ratio 1.0 % 09/28/18 09:49 HCG, Qual Negative (Negative) 09/28/18 09:49 Urine Color Straw (Yellow) 09/28/18 12:44 Urine Turbidity Clear (Clear) 09/28/18 12:44 Urine pH 5.0 (5.0-7.0) 09/28/18 12:44 Ur Specific [place] 1.014 (1.003-1.030) 09/28/18 12:44 Urine Protein 30 mg/dl mg/dL (Negative) 09/28/18 12:44 Urine Glucose (UA) >=500 mg/dL (Negative) 09/28/18 12:44 Urine Ketones 80 mg/dL (Negative) 09/28/18 12:44 Urine Blood Sm (Negative) 09/28/18 12:44 Urine Nitrite Neg (Negative) 09/28/18 12:44 Urine Bilirubin Neg (Negative) 09/28/18 12:44 Urine Urobilinogen < 2.0 mg/dL (<2.0) 09/28/18 12:44 Ur Leukocyte Esterase Neg (Negative) 09/28/18 12:44 Urine WBC (Auto) 1.0 /HPF (0.0-6.0) 09/28/18 12:44 Urine RBC (Auto) < 1.0 /HPF (0.0-6.0) 09/28/18 12:44 U Epithel Cells (Auto) 1.0 /HPF (0-13.0) 09/28/18 12:44 Urine Bacteria (Auto) 1+ /HPF (Negative) 09/28/18 12:44 Urine Mucus Few /HPF 09/28/18 12:44 Urine Opiates Screen Presumptive negative 09/28/18 12:44 Urine Methadone Screen Presumptive negative 09/28/18 12:44 Ur Barbiturates Screen Presumptive negative 09/28/18 12:44 Ur Phencyclidine Scrn Presumptive negative 09/28/18 12:44 Ur Amphetamines Screen Presumptive negative 09/28/18 12:44 U Benzodiazepines Scrn Presumptive negative 09/28/18 12:44 Urine Cocaine Screen Presumptive negative 09/28/18 12:44 U Marijuana (THC) Screen Presumptive negative 09/28/18 12:44 Drugs of Abuse Note Disclamer 09/28/18 12:44 Plasma/Serum Alcohol < 0.01 % (0-0.07) 09/28/18 09:49
[2018-09-29 14:59] LABS: BUN/Creatinine Ratio 12; Blood Urea Nitrogen 13 mg/dL (7-17); Calcium 7.7 mg/dL (8.4-10.2); Hemolysis Index 6
--- NOTE | 2018-09-29 15:03 | Consultation ---
History of Present Illness - Reason for Consult Consult date: 09/29/18 Sepsis/SIRS, leucocytosis Requesting physician: SONIA LYLE - History of Present Illness The patient is a 38-year-old female with diabetes mellitus type 1, hypertension who presented to the emergency room in a confused state. Patient states that she has been a type I diabetic for many years, since high school and had been checking her blood sugars at home and they seemed to be normal however for the last 4 days she was urinating quite a bit. She apparently then developed confusion and doesn't remember much after that until coming here. She denies any fevers or chills. Denies any diarrhea. Did have some nausea prior to admission. Patient was found to be in severe hyperglycemia, acidosis, DKA and acute kidney injury. She was admitted to the hospital, started on IV fluids and DKA protocol. Due to leukocytosis of 29K, ID was consulted. She got a dose of levofloxacin, vancomycin as well as ceftriaxone. Currently is on cefepime. She feels much better and close to her baseline except she feels dehydrated and is thirsty. Reports constipation. Review of Systems: General: no fevers,chills or rigors HEENT: no new visual disturbance Respiratory: No cough, sputum, hemoptysis. shortness of breath + on admission, now improved Cardiovascular: No chest pain, syncope Gastrointestinal: No nausea, vomiting or diarrhea. reports constipation. Genitourinary: No dysuria or hematuria. Polyuria + Musculoskeletal: No new or worsening neck pain or back pain Neurologic: No headaches, seizures Hematologic: No easy bruising or bleeding Endocrine: No night sweats or acute weight loss Skin: negative for rash, jaundice Psychiatric: No suicidal or homicidal ideation Past History Past Medical History: diabetes, hypertension Past Surgical History: No surgical history, Other (reviewed) Social history: single Family history: diabetes, hypertension Medications and Allergies Allergies Allergy/AdvReac Type Severity Reaction Status Date / Time No Known Allergies Allergy Unverified 09/28/18 10:50 Home Medications Medication Instructions Recorded Confirmed Last Taken Type Unobtainable 09/28/18 09/28/18 Unknown History Active Meds: Active Medications Dextrose (D50w (25gm) Syringe) 0 ml IV PRN PRN PRN Reason: Hypoglycemia Dextrose (D50w (25gm) Syringe) 0 ml IV ONCE PRN PRN Reason: Hypoglycemia Hydralazine HCl (Apresoline) 10 mg IV Q4HR PRN PRN Reason: BP >160/100 Insulin Human Regular 100 (units/ Sodium Chloride) 100 mls @ 7 mls/hr IV TITR JL; Protocol Last Titration: 09/29/18 11:45 Dose: 0 units/hr, 0 mls/hr Documented by: Sodium Chloride (Nacl 0.45% 1000 Ml) 1,000 mls @ 125 mls/hr IV DIRECT JL Cefepime HCl (Maxipime/Ns 1 Gm/100 Ml) 1 gm in 100 mls @ 200 mls/hr IV Q12HR JL Last Admin: 09/29/18 14:40 Dose: 200 mls/hr Documented by: Insulin Human Lispro (Humalog) 0 unit SUB-Q ACHS [facility]; Protocol Last Admin: 09/29/18 12:46 Dose: Not Given Documented by: Labetalol HCl (Normodyne) 10 mg IV Q4H PRN PRN Reason: BP >160/100; hold for HR <60 Ondansetron HCl (Zofran) 4 mg IV Q4H PRN PRN Reason: Nausea And Vomiting Last Admin: 09/29/18 11:35 Dose: 4 mg Documented by: Sodium Chloride (Sodium Chloride Flush Syringe 10 Ml) 10 ml IV BID [facility] Last Admin: 09/29/18 10:15 Dose: 10 ml Documented by: Sodium Chloride (Sodium Chloride Flush Syringe 10 Ml) 10 ml IV PRN PRN PRN Reason: LINE FLUSH Physical Examination - Physical Exam Narrative exam: Physical Exam: Constitutional: Alert, cooperative. No acute distress Head, Ears, Nose: Normocephalic, atraumatic. External ears, nose normal Eyes: Conjunctivae/corneas clear. No icterus. No ptosis. Neck: Supple, no meningeal signs Oral: dry mucosa, no thrush Cardiovascular: S1, S2 normal. Respiratory: Good air entry, clear to auscultation bilaterally GI: Soft, non-tender; bowel sounds normal. No peritoneal signs Musculoskeletal: No pedal edema, no cyanosis. Skin: No rash or abscess Hem/Lymphatic: No palpable cervical or supraclavicular nodes. No lymphangitis Psych: Mood ok. Affect normal Neurological: Awake, alert, oriented. No gross abnormality - Constitutional Vitals: Vital Signs Temp Pulse Resp BP Pulse Ox 115 H 32 H 110/80 100 09/29/18 14:02 09/29/18 14:02 09/29/18 14:02 09/29/18 14:02 Results - Labs CBC & Chem 7: 09/28/18 09:49 09/29/18 13:51 Labs: Abnormal lab results 09/28/18 09/28/18 09/28/18 Range/Units 15:06 15:17 16:57 Sodium 146 H 146 H (137-145) mmol/L Potassium (3.6-5.0) mmol/L Chloride 112.0 H 109.2 H (98-107) mmol/L Carbon Dioxide 5 L* 5 L* (22-30) mmol/L BUN 23 H 22 H (7-17) mg/dL Glucose 446 H 339 H (65-100) mg/dL POC Glucose (70-105) Lactic Acid (0.7-2.0) mmol/L Calcium 6.0 L 6.5 L (8.4-10.2) mg/dL C-Reactive Protein 2.10 H (0.00-1.30) mg/dL 09/28/18 09/28/18 09/28/18 Range/Units 18:15 19:23 20:29 Sodium (137-145) mmol/L Potassium (3.6-5.0) mmol/L Chloride (98-107) mmol/L Carbon Dioxide (22-30) mmol/L BUN (7-17) mg/dL Glucose (65-100) mg/dL POC Glucose 263 H 232 H 206 H (70-105) Lactic Acid (0.7-2.0) mmol/L Calcium (8.4-10.2) mg/dL C-Reactive Protein (0.00-1.30) mg/dL 09/28/18 09/28/18 09/28/18 Range/Units 21:38 21:45 21:45 Sodium 149 H (137-145) mmol/L Potassium 5.1 H (3.6-5.0) mmol/L Chloride 113.8 H (98-107) mmol/L Carbon Dioxide 11 L (22-30) mmol/L BUN (7-17) mg/dL Glucose 223 H (65-100) mg/dL POC Glucose 238 H (70-105) Lactic Acid 2.40 H* (0.7-2.0) mmol/L Calcium 6.9 L (8.4-10.2) mg/dL C-Reactive Protein (0.00-1.30) mg/dL 09/28/18 09/28/18 09/28/18 Range/Units 22:34 23:04 23:52 Sodium (137-145) mmol/L Potassium (3.6-5.0) mmol/L Chloride (98-107) mmol/L Carbon Dioxide (22-30) mmol/L BUN (7-17) mg/dL Glucose (65-100) mg/dL POC Glucose 216 H 208 H (70-105) Lactic Acid 2.80 H* (0.7-2.0) mmol/L Calcium (8.4-10.2) mg/dL C-Reactive Protein (0.00-1.30) mg/dL 09/29/18 09/29/18 09/29/18 Range/Units 00:00 00:41 00:53 Sodium (137-145) mmol/L Potassium (3.6-5.0) mmol/L Chloride (98-107) mmol/L Carbon Dioxide (22-30) mmol/L BUN (7-17) mg/dL Glucose (65-100) mg/dL POC Glucose 227 H (70-105) Lactic Acid 3.70 H* 4.20 H* (0.7-2.0) mmol/L Calcium (8.4-10.2) mg/dL C-Reactive Protein (0.00-1.30) mg/dL 09/29/18 09/29/18 09/29/18 Range/Units 01:40 02:48 03:58 Sodium (137-145) mmol/L Potassium (3.6-5.0) mmol/L Chloride (98-107) mmol/L Carbon Dioxide (22-30) mmol/L BUN (7-17) mg/dL Glucose (65-100) mg/dL POC Glucose 226 H 173 H 153 H (70-105) Lactic Acid (0.7-2.0) mmol/L Calcium (8.4-10.2) mg/dL C-Reactive Protein (0.00-1.30) mg/dL 09/29/18 09/29/1809/29/19 Range/Units 04:09 04:09 05:45 Sodium 151 H (137-145) mmol/L Potassium 3.3 L D (3.6-5.0) mmol/L Chloride 116.4 H (98-107) mmol/L Carbon Dioxide 15 L (22-30) mmol/L BUN (7-17) mg/dL Glucose 128 H (65-100) mg/dL POC Glucose (70-105) Lactic Acid 3.80 H* 3.30 H* (0.7-2.0) mmol/L Calcium 7.5 L (8.4-10.2) mg/dL C-Reactive Protein (0.00-1.30) mg/dL 09/29/18 09/29/18 09/29/18 Range/Units 05:52 06:58 07:28 Sodium (137-145) mmol/L Potassium (3.6-5.0) mmol/L Chloride (98-107) mmol/L Carbon Dioxide (22-30) mmol/L BUN (7-17) mg/dL Glucose (65-100) mg/dL POC Glucose 165 H 128 H (70-105) Lactic Acid 2.70 H* (0.7-2.0) mmol/L Calcium (8.4-10.2) mg/dL C-Reactive Protein (0.00-1.30) mg/dL 09/29/18 09/29/18 09/29/18 Range/Units 08:06 08:23 09:15 Sodium 152 H (137-145) mmol/L Potassium (3.6-5.0) mmol/L Chloride 120.7 H (98-107) mmol/L Carbon Dioxide 15 L (22-30) mmol/L BUN (7-17) mg/dL Glucose 126 H (65-100) mg/dL POC Glucose 143 H 154 H (70-105) Lactic Acid (0.7-2.0) mmol/L Calcium 7.6 L (8.4-10.2) mg/dL C-Reactive Protein (0.00-1.30) mg/dL 09/29/18 09/29/18 09/29/18 Range/Units 10:13 11:43 13:51 Sodium 150 H (137-145) mmol/L Potassium (3.6-5.0) mmol/L Chloride 116.9 H (98-107) mmol/L Carbon Dioxide 14 L (22-30) mmol/L BUN (7-17) mg/dL Glucose 254 H (65-100) mg/dL POC Glucose 126 H 124 H (70-105) Lactic Acid (0.7-2.0) mmol/L Calcium 7.7 L (8.4-10.2) mg/dL C-Reactive Protein (0.00-1.30) mg/dL - Imaging and Cardiology Chest x-ray: report reviewed, image reviewed (Chest x-ray reviewed, shows no evidence of pneumonia) Assessment and Plan Cultures: 09/28/2018 blood cultures: No growth A/P: 38-year-old female with diabetes mellitus type 1, hypertension, admitted with: 1) SIRS v/s sepsis: Likely SIRS in the setting of severe acidosis from uncontrolled diabetes and associated diabetic ketoacidosis. Chest x-ray without any evidence of pneumonia and UA also without evidence of pyuria to suggest UTI. Patient denies any fevers or upper respiratory symptoms prior to admission. Leucocytosis is likely reactive. No antibiotics needed. 2) Metabolic acidosis: Lactic acidosis, DKA 3) Diabetes mellitus type 1 uncontrolled 4) Hyponatremia followed by hypernatremia: improving. 5) Acute kidney injury: Improved Recs: Discontinued antibiotics Leukocytosis is likely reactive in the setting of severe acidosis Will follow. Please call with questions. MD M[facility] C: [phone] O: [phone] F: [phone]
--- NOTE | 2018-09-29 15:11 | Progress Note ---
Assessment and Plan Acute encephalopathy secondary likely to diabetic ketoacidosis. Diabetic ketoacidosis. Acute kidney injury. Hyperkalemia that is resolving, potassium now down to 7.0. Leukocytosis. Lactic acidosis. Obesity. Subjective Date of service: 09/29/18 Interval history: Patient is seen today for: Seen and examined at bedside; 24hour events reviewed; nursing and respiratory care staff consulted; no adverse overnight events reported to me; Objective Vital Signs - 12hr 09/29/18 09/29/18 09/29/18 03:16 03:30 03:46 Pulse Rate 138 H 137 H 134 H Pulse Rate [ From Monitor] Respiratory 24 34 H 38 H Rate Blood Pressure 142/77 142/77 142/76 Blood Pressure [Right] O2 Sat by Pulse 97 96 96 Oximetry 09/29/18 09/29/18 09/29/18 04:00 04:16 04:30 Pulse Rate 137 H 138 H 135 H Pulse Rate [ From Monitor] Respiratory 61 H 37 H 28 H Rate Blood Pressure 138/75 138/75 138/75 Blood Pressure [Right] O2 Sat by Pulse 95 94 96 Oximetry 09/29/18 09/29/18 09/29/18 04:46 05:00 05:16 Pulse Rate 132 H 133 H 135 H Pulse Rate [ From Monitor] Respiratory 25 H 22 26 H Rate Blood Pressure 135/70 135/70 133/73 Blood Pressure [Right] O2 Sat by Pulse 97 97 95 Oximetry 09/29/18 09/29/18 09/29/18 05:30 05:46 06:00 Pulse Rate 132 H 134 H 130 H Pulse Rate [ From Monitor] Respiratory 26 H 29 H 29 H Rate Blood Pressure 131/72 131/72 130/82 Blood Pressure [Right] O2 Sat by Pulse 98 98 99 Oximetry 09/29/18 09/29/18 09/29/18 06:16 06:30 06:46 Pulse Rate 132 H 131 H 130 H Pulse Rate [ From Monitor] Respiratory 28 H 33 H 27 H Rate Blood Pressure 130/82 150/80 150/80 Blood Pressure [Right] O2 Sat by Pulse 98 98 98 Oximetry 09/29/18 09/29/18 09/29/18 07:00 07:16 07:30 Pulse Rate 126 H 130 H 129 H Pulse Rate [ From Monitor] Respiratory 22 29 H 30 H Rate Blood Pressure 130/77 130/77 138/81 Blood Pressure [Right] O2 Sat by Pulse 97 96 98 Oximetry 09/29/18 09/29/18 09/29/18 07:46 08:00 08:15 Pulse Rate 123 H 128 H Pulse Rate [ 123 H From Monitor] Respiratory 28 H 25 H 29 H Rate Blood Pressure 130/77 125/75 Blood Pressure [Right] O2 Sat by Pulse 98 96 100 Oximetry 09/29/18 09/29/18 09/29/18 08:16 08:30 08:46 Pulse Rate 123 H 126 H 121 H Pulse Rate [ From Monitor] Respiratory 29 H 29 H 20 Rate Blood Pressure 125/75 138/84 138/84 Blood Pressure [Right] O2 Sat by Pulse 100 97 99 Oximetry 09/29/18 09/29/18 09/29/18 09:00 09:16 09:30 Pulse Rate 125 H 121 H 122 H Pulse Rate [ From Monitor] Respiratory 29 H 37 H 48 H Rate Blood Pressure 144/84 144/84 149/86 Blood Pressure [Right] O2 Sat by Pulse 98 99 97 Oximetry 09/29/18 09/29/18 09/29/18 09:46 10:00 10:30 Pulse Rate 121 H 123 H 123 H Pulse Rate [ From Monitor] Respiratory 49 H 30 H 30 H Rate Blood Pressure 149/86 149/86 165/99 Blood Pressure [Right] O2 Sat by Pulse 99 99 99 Oximetry 09/29/18 09/29/18 09/29/18 11:00 11:30 12:00 Pulse Rate 119 H 115 H 117 H Pulse Rate [ From Monitor] Respiratory 33 H 22 31 H Rate Blood Pressure 170/102 164/94 157/99 Blood Pressure [Right] O2 Sat by Pulse 99 99 Oximetry 09/29/18 09/29/18 09/29/18 12:30 13:00 13:30 Pulse Rate 121 H 121 H 121 H Pulse Rate [ From Monitor] Respiratory 29 H 33 H 31 H Rate Blood Pressure 174/95 174/95 174/95 Blood Pressure [Right] O2 Sat by Pulse 99 99 99 Oximetry 09/29/18 09/29/18 14:00 14:02 Pulse Rate 120 H 115 H Pulse Rate [ From Monitor] Respiratory 25 H 32 H Rate Blood Pressure 174/95 Blood Pressure 110/80 [Right] O2 Sat by Pulse 99 100 Oximetry CBC and BMP: 09/28/18 09:49 09/29/18 13:51 Abnormal lab findings: Abnormal Labs 09/28/18 09/28/18 09/28/18 09:28 09:49 09:49 WBC 29.7 H Hgb 14.4 H Hct 51.1 H MCV 102 H MCHC 28 L RDW 15.5 H Plt Count 602 H Seg Neuts % (Manual) 83.0 H Lymphocytes % (Manual) 8.0 L Seg Neutrophils # Man 24.7 H Monocytes # (Manual) 2.1 H Basophils # (Manual) 0.3 H VBG pH Sodium 126 L Potassium 8.2 H* Chloride 81.7 L Carbon Dioxide 4 L* BUN 31 H Creatinine 1.9 H Glucose 1000 H* POC Glucose > 500 H Lactic Acid Calcium Phosphorus Magnesium Ammonia C-Reactive Protein Total Protein 8.5 H 09/28/18 09/28/18 09/28/18 09:49 09:49 12:44 WBC Hgb Hct MCV MCHC RDW Plt Count Seg Neuts % (Manual) Lymphocytes % (Manual) Seg Neutrophils # Man Monocytes # (Manual) Basophils # (Manual) VBG pH 6.874 L* Sodium Potassium Chloride Carbon Dioxide BUN Creatinine Glucose POC Glucose Lactic Acid Calcium Phosphorus 9.60 H Magnesium 2.40 H Ammonia 114.0 H C-Reactive Protein Total Protein 09/28/18 09/28/18 09/28/18 12:44 12:44 13:48 WBC Hgb Hct MCV MCHC RDW Plt Count Seg Neuts % (Manual) Lymphocytes % (Manual) Seg Neutrophils # Man Monocytes # (Manual) Basophils # (Manual) VBG pH Sodium 136 L D 146 H D Potassium 7.0 H* 5.4 H D Chloride 95.3 L Carbon Dioxide 3 L* 4 L* BUN 31 H 28 H Creatinine 1.8 H 1.4 H Glucose 896 H* 595 H* POC Glucose Lactic Acid 3.40 H* Calcium 7.9 L 6.8 L Phosphorus Magnesium Ammonia C-Reactive Protein Total Protein 09/28/18 09/28/18 09/28/18 15:06 15:17 16:57 WBC Hgb Hct MCV MCHC RDW Plt Count Seg Neuts % (Manual) Lymphocytes % (Manual) Seg Neutrophils # Man Monocytes # (Manual) Basophils # (Manual) VBG pH Sodium 146 H 146 H Potassium Chloride 112.0 H 109.2 H Carbon Dioxide 5 L* 5 L* BUN 23 H 22 H Creatinine Glucose 446 H 339 H POC Glucose Lactic Acid Calcium 6.0 L 6.5 L Phosphorus Magnesium Ammonia C-Reactive Protein 2.10 H Total Protein 09/28/18 09/28/18 09/28/18 18:15 19:23 20:29 WBC Hgb Hct MCV MCHC RDW Plt Count Seg Neuts % (Manual) Lymphocytes % (Manual) Seg Neutrophils # Man Monocytes # (Manual) Basophils # (Manual) VBG pH Sodium Potassium Chloride Carbon Dioxide BUN Creatinine Glucose POC Glucose 263 H 232 H 206 H Lactic Acid Calcium Phosphorus Magnesium Ammonia C-Reactive Protein Total Protein 09/28/18 09/28/18 09/28/18 21:38 21:45 21:45 WBC Hgb Hct MCV MCHC RDW Plt Count Seg Neuts % (Manual) Lymphocytes % (Manual) Seg Neutrophils # Man Monocytes # (Manual) Basophils # (Manual) VBG pH Sodium 149 H Potassium 5.1 H Chloride 113.8 H Carbon Dioxide 11 L BUN Creatinine Glucose 223 H POC Glucose 238 H Lactic Acid 2.40 H* Calcium 6.9 L Phosphorus Magnesium Ammonia C-Reactive Protein Total Protein 09/28/18 09/28/18 09/28/18 22:34 23:04 23:52 WBC Hgb Hct MCV MCHC RDW Plt Count Seg Neuts % (Manual) Lymphocytes % (Manual) Seg Neutrophils # Man Monocytes # (Manual) Basophils # (Manual) VBG pH Sodium Potassium Chloride Carbon Dioxide BUN Creatinine Glucose POC Glucose 216 H 208 H Lactic Acid 2.80 H* Calcium Phosphorus Magnesium Ammonia C-Reactive Protein Total Protein 09/29/18 09/29/18 09/29/18 00:00 00:41 00:53 WBC Hgb Hct MCV MCHC RDW Plt Count Seg Neuts % (Manual) Lymphocytes % (Manual) Seg Neutrophils # Man Monocytes # (Manual) Basophils # (Manual) VBG pH Sodium Potassium Chloride Carbon Dioxide BUN Creatinine Glucose POC Glucose 227 H Lactic Acid 3.70 H* 4.20 H* Calcium Phosphorus Magnesium Ammonia C-Reactive Protein Total Protein 09/29/18 09/29/18 09/29/18 01:40 02:48 03:58 WBC Hgb Hct MCV MCHC RDW Plt Count Seg Neuts % (Manual) Lymphocytes % (Manual) Seg Neutrophils # Man Monocytes # (Manual) Basophils # (Manual) VBG pH Sodium Potassium Chloride Carbon Dioxide BUN Creatinine Glucose POC Glucose 226 H 173 H 153 H Lactic Acid Calcium Phosphorus Magnesium Ammonia C-Reactive Protein Total Protein 09/29/18 09/29/18 09/29/18 04:09 04:09 05:45 WBC Hgb Hct MCV MCHC RDW Plt Count Seg Neuts % (Manual) Lymphocytes % (Manual) Seg Neutrophils # Man Monocytes # (Manual) Basophils # (Manual) VBG pH Sodium 151 H Potassium 3.3 L D Chloride 116.4 H Carbon Dioxide 15 L BUN Creatinine Glucose 128 H POC Glucose Lactic Acid 3.80 H* 3.30 H* Calcium 7.5 L Phosphorus Magnesium Ammonia C-Reactive Protein Total Protein 09/29/18 09/29/18 09/29/18 05:52 06:58 07:28 WBC Hgb Hct MCV MCHC RDW Plt Count Seg Neuts % (Manual) Lymphocytes % (Manual) Seg Neutrophils # Man Monocytes # (Manual) Basophils # (Manual) VBG pH Sodium Potassium Chloride Carbon Dioxide BUN Creatinine Glucose POC Glucose 165 H 128 H Lactic Acid 2.70 H* Calcium Phosphorus Magnesium Ammonia C-Reactive Protein Total Protein 09/29/18 09/29/18 09/29/18 08:06 08:23 09:15 WBC Hgb Hct MCV MCHC RDW Plt Count Seg Neuts % (Manual) Lymphocytes % (Manual) Seg Neutrophils # Man Monocytes # (Manual) Basophils # (Manual) VBG pH Sodium 152 H Potassium Chloride 120.7 H Carbon Dioxide 15 L BUN Creatinine Glucose 126 H POC Glucose 143 H 154 H Lactic Acid Calcium 7.6 L Phosphorus Magnesium Ammonia C-Reactive Protein Total Protein 09/29/18 09/29/18 09/29/18 10:13 11:43 13:51 WBC Hgb Hct MCV MCHC RDW Plt Count Seg Neuts % (Manual) Lymphocytes % (Manual) Seg Neutrophils # Man Monocytes # (Manual) Basophils # (Manual) VBG pH Sodium 150 H Potassium Chloride 116.9 H Carbon Dioxide 14 L BUN Creatinine Glucose 254 H POC Glucose 126 H 124 H Lactic Acid Calcium 7.7 L Phosphorus Magnesium Ammonia C-Reactive Protein Total Protein
[2018-09-29] MEDS ORDERED: LANTUS SUB-Q SCH ×2 (17:44→22:00)
[2018-09-29] MEDS ORDERED: HumuLIN R SUB-Q ONE (18:02)
[2018-09-29] MEDS: NACL 0.45% 1000 ML 1,000 ML IV SCH (21:16)
[2018-09-29] MEDS: LOVENOX SUB-Q SCH (21:21)
[2018-09-30] MEDS ORDERED: TYLENOL PO PRN (05:29)
[2018-09-30] MEDS: NACL 0.45% 1000 ML 1,000 ML IV SCH ×2 (06:18→13:05)
[2018-09-30] MEDS: COLACE PO PRN ×2 (06:24→21:58)
[2018-09-30] MEDS ORDERED: HumaLOG SUB-Q SCH (07:30)
[2018-09-30] MEDS: HumaLOG SUB-Q SCH ×6 (09:06→23:14)
[2018-09-30] MEDS: ZOFRAN IV PRN ×2 (09:24→21:57)
[2018-09-30] MEDS ORDERED: LANTUS SUB-Q SCH (11:10)
--- NOTE | 2018-09-30 11:12 | Progress Note ---
Assessment and Plan Assessment and plan: 38-year-old woman history of hypertension and diabetes who presented confusion, elevated glucose, and malaise. She also had been complaining of high glucose and suprapubic tenderness. Problems DKA uncontrolled diabetes SIRS with organ dysfunction Sepsis ruled out UTI ruled out, neg urine cx Hypernatremia Metabolic acidosis Dehydration Nausea- resolved Plan advance diet, optimize insulin dose id input appreciated, dc abx, no evidence of infection Treated w hypotonic IV fluids. Antiemetics as needed dc begum cath DVT prophylaxis chemical History Interval history: no fever, no sob no SP tenderness no cough, no nausea having gen weakness and body aches today Hospitalist Physical - Physical exam Narrative exam: General.: Appears ill, hirsutism noted HEENT: Moist mucous membranes, extraocular muscles intact, no lymphadenopathy Neck: supple Cardiac: S1-S2 heard Lungs: clear to auscultation bilaterally Abdomen: soft , nontender, nondistended, bowel sounds positive Extremities: no edema clubbing or cyanosis Purulent urine seen in Begum catheter Skin: no rash or lesions Neurologic: no gross focal deficits Psych: calm, and cooperative - Constitutional Vitals: Temp Pulse Resp BP Pulse Ox 97.9 F 119 H 20 137/83 95 09/30/18 05:14 09/30/18 05:14 09/30/18 05:14 09/30/18 05:14 09/30/18 05:14 General appearance: Present: severe distress Results - Labs CBC & Chem 7: 09/28/18 09:49 09/29/18 13:51 Labs: Laboratory Last Values WBC 29.7 K/mm3 (4.5-11.0) H 09/28/18 09:49 RBC 4.99 M/mm3 (3.65-5.03) 09/28/18 09:49 Hgb 14.4 gm/dl (10.1-14.3) H 09/28/18 09:49 Hct 51.1 % (30.3-42.9) H 09/28/18 09:49 MCV 102 fl (79-97) H 09/28/18 09:49 MCH 29 pg (28-32) 09/28/18 09:49 MCHC 28 % (30-34) L 09/28/18 09:49 RDW 15.5 % (13.2-15.2) H 09/28/18 09:49 Plt Count 602 K/mm3 (140-440) H 09/28/18 09:49 Add Manual Diff Complete 09/28/18 09:49 Total Counted 100 09/28/18 09:49 Seg Neuts % (Manual) 83.0 % (40.0-70.0) H 09/28/18 09:49 Band Neutrophils % 0 % 09/28/18 09:49 Lymphocytes % (Manual) 8.0 % (13.4-35.0) L 09/28/18 09:49 Reactive Lymphs % (Man) 0 % 09/28/18 09:49 Monocytes % (Manual) 7.0 % (0.0-7.3) 09/28/18 09:49 Eosinophils % (Manual) 0 % (0.0-4.3) 09/28/18 09:49 Basophils % (Manual) 1.0 % (0.0-1.8) 09/28/18 09:49 Metamyelocytes % 0 % 09/28/18 09:49 Myelocytes % 1.0 % 09/28/18 09:49 Promyelocytes % 0 % 09/28/18 09:49 Blast Cells % 0 % 09/28/18 09:49 Nucleated RBC % Not Reportable 09/28/18 09:49 Seg Neutrophils # Man 24.7 K/mm3 (1.8-7.7) H 09/28/18 09:49 Band Neutrophils # 0.0 K/mm3 09/28/18 09:49 Lymphocytes # (Manual) 2.4 K/mm3 (1.2-5.4) 09/28/18 09:49 Abs React Lymphs (Man) 0.0 K/mm3 09/28/18 09:49 Monocytes # (Manual) 2.1 K/mm3 (0.0-0.8) H 09/28/18 09:49 Eosinophils # (Manual) 0.0 K/mm3 (0.0-0.4) 09/28/18 09:49 Basophils # (Manual) 0.3 K/mm3 (0.0-0.1) H 09/28/18 09:49 Metamyelocytes # 0.0 K/mm3 09/28/18 09:49 Myelocytes # 0.3 K/mm3 09/28/18 09:49 Promyelocytes # 0.0 K/mm3 09/28/18 09:49 Blast Cells # 0.0 K/mm3 09/28/18 09:49 WBC Morphology Not Reportable 09/28/18 09:49 Hypersegmented Neuts Not Reportable 09/28/18 09:49 Hyposegmented Neuts Not Reportable 09/28/18 09:49 Hypogranular Neuts Not Reportable 09/28/18 09:49 Smudge Cells Not Reportable 09/28/18 09:49 Toxic Granulation Not Reportable 09/28/18 09:49 Toxic Vacuolation Not Reportable 09/28/18 09:49 Dohle Bodies Not Reportable 09/28/18 09:49 Pelger-Huet Anomaly Not Reportable 09/28/18 09:49 Kerry Rods Not Reportable 09/28/18 09:49 Platelet Estimate Consistent w auto 09/28/18 09:49 Clumped Platelets Not Reportable 09/28/18 09:49 Plt Clumps, EDTA Not Reportable 09/28/18 09:49 Large Platelets Not Reportable 09/28/18 09:49 Giant Platelets Not Reportable 09/28/18 09:49 Platelet Satelliting Not Reportable 09/28/18 09:49 Plt Morphology Comment Not Reportable 09/28/18 09:49 RBC Morphology Normal 09/28/18 09:49 Dimorphic RBCs Not Reportable 09/28/18 09:49 Polychromasia Not Reportable 09/28/18 09:49 Hypochromasia Not Reportable 09/28/18 09:49 Poikilocytosis Not Reportable 09/28/18 09:49 Anisocytosis Not Reportable 09/28/18 09:49 Microcytosis Not Reportable 09/28/18 09:49 Macrocytosis Not Reportable 09/28/18 09:49 Spherocytes Not Reportable 09/28/18 09:49 Pappenheimer Bodies Not Reportable 09/28/18 09:49 Sickle Cells Not Reportable 09/28/18 09:49 Target Cells Not Reportable 09/28/18 09:49 Tear Drop Cells Not Reportable 09/28/18 09:49 Ovalocytes Not Reportable 09/28/18 09:49 Helmet Cells Not Reportable 09/28/18 09:49 [place] Bodies Not Reportable 09/28/18 09:49 [place] Rings Not Reportable 09/28/18 09:49 Dejuan Cells Not Reportable 09/28/18 09:49 Bite Cells Not Reportable 09/28/18 09:49 Crenated Cell Not Reportable 09/28/18 09:49 Elliptocytes Not Reportable 09/28/18 09:49 Acanthocytes (Spur) Not Reportable 09/28/18 09:49 Rouleaux Not Reportable 09/28/18 09:49 Hemoglobin C Crystals Not Reportable 09/28/18 09:49 Schistocytes Not Reportable 09/28/18 09:49 Malaria parasites Not Reportable 09/28/18 09:49 Santino Bodies Not Reportable 09/28/18 09:49 Hem Pathologist Commnt No 09/28/18 09:49 VBG pH 6.874 (7.320-7.420) L* 09/28/18 09:49 Sodium 150 mmol/L (137-145) H 09/29/18 13:51 Potassium 4.2 mmol/L (3.6-5.0) 09/29/18 13:51 Chloride 116.9 mmol/L (98-107) H 09/29/18 13:51 Carbon Dioxide 14 mmol/L (22-30) L 09/29/18 13:51 Anion Gap 23 mmol/L 09/29/18 13:51 BUN 13 mg/dL (7-17) 09/29/18 13:51 Creatinine 1.1 mg/dL (0.7-1.2) 09/29/18 13:51 Estimated GFR > 60 ml/min 09/29/18 13:51 BUN/Creatinine Ratio 12 % 09/29/18 13:51 Glucose 254 mg/dL (65-100) H 09/29/18 13:51 POC Glucose 318 (70-105) H 09/30/18 07:34 Lactic Acid 2.70 mmol/L (0.7-2.0) H* 09/29/18 07:28 Calcium 7.7 mg/dL (8.4-10.2) L 09/29/18 13:51 Phosphorus 9.60 mg/dL (2.5-4.5) H 09/28/18 12:44 Magnesium 2.40 mg/dL (1.7-2.3) H 09/28/18 12:44 Total Bilirubin 0.20 mg/dL (0.1-1.2) 09/28/18 09:49 AST 11 units/L (5-40) 09/28/18 09:49 ALT 8 units/L (7-56) 09/28/18 09:49 Alkaline Phosphatase 117 units/L (35-129) 09/28/18 09:49 Ammonia 114.0 umol/L (25-60) H 09/28/18 09:49 C-Reactive Protein 2.10 mg/dL (0.00-1.30) H 09/28/18 15:17 Total Protein 8.5 g/dL (6.3-8.2) H 09/28/18 09:49 Albumin 4.2 g/dL (3.9-5) 09/28/18 09:49 Albumin/Globulin Ratio 1.0 % 09/28/18 09:49 HCG, Qual Negative (Negative) 09/28/18 09:49 Urine Color Straw (Yellow) 09/28/18 12:44 Urine Turbidity Clear (Clear) 09/28/18 12:44 Urine pH 5.0 (5.0-7.0) 09/28/18 12:44 Ur Specific [place] 1.014 (1.003-1.030) 09/28/18 12:44 Urine Protein 30 mg/dl mg/dL (Negative) 09/28/18 12:44 Urine Glucose (UA) >=500 mg/dL (Negative) 09/28/18 12:44 Urine Ketones 80 mg/dL (Negative) 09/28/18 12:44 Urine Blood Sm (Negative) 09/28/18 12:44 Urine Nitrite Neg (Negative) 09/28/18 12:44 Urine Bilirubin Neg (Negative) 09/28/18 12:44 Urine Urobilinogen < 2.0 mg/dL (<2.0) 09/28/18 12:44 Ur Leukocyte Esterase Neg (Negative) 09/28/18 12:44 Urine WBC (Auto) 1.0 /HPF (0.0-6.0) 09/28/18 12:44 Urine RBC (Auto) < 1.0 /HPF (0.0-6.0) 09/28/18 12:44 U Epithel Cells (Auto) 1.0 /HPF (0-13.0) 09/28/18 12:44 Urine Bacteria (Auto) 1+ /HPF (Negative) 09/28/18 12:44 Urine Mucus Few /HPF 09/28/18 12:44 Urine Opiates Screen Presumptive negative 09/28/18 12:44 Urine Methadone Screen Presumptive negative 09/28/18 12:44 Ur Barbiturates Screen Presumptive negative 09/28/18 12:44 Ur Phencyclidine Scrn Presumptive negative 09/28/18 12:44 Ur Amphetamines Screen Presumptive negative 09/28/18 12:44 U Benzodiazepines Scrn Presumptive negative 09/28/18 12:44 Urine Cocaine Screen Presumptive negative 09/28/18 12:44 U Marijuana (THC) Screen Presumptive negative 09/28/18 12:44 Drugs of Abuse Note Disclamer 09/28/18 12:44 Plasma/Serum Alcohol < 0.01 % (0-0.07) 09/28/18 09:49
[2018-09-30] MEDS: SODIUM CHLORIDE FLUSH SYRINGE 10 ML IV SCH ×2 (12:57→23:24)
--- NOTE | 2018-09-30 19:27 | Progress Note ---
Assessment and Plan Cultures: 09/28/2018 blood cultures: No growth A/P: 38-year-old female with diabetes mellitus type 1, hypertension, admitted with: 1) SIRS: Likely due to severe acidosis from uncontrolled diabetes and associated diabetic ketoacidosis. Chest x-ray without any evidence of pneumonia. UA not c/w UTI. Patient denies any fevers or upper respiratory symptoms prior to admission. Leucocytosis is likely reactive. 2) Metabolic acidosis: Lactic acidosis, DKA 3) Diabetes mellitus type 1 uncontrolled 4) Hyponatremia followed by hypernatremia: improving. 5) Acute kidney injury: Improved Recs: Monitor off antibiotics Remove femoral TLC Check CBC Will follow. Please call with questions. Claudia Cedillo MD Infectious Diseases Flight Tower Dispatcher [facility] ([facility]) M [phone] O [phone] Subjective Date of service: 09/30/18 Principal diagnosis: SIRS Interval history: Patient reports feeling much better, no fever, reports mild abdominal pain. Objective - Exam Narrative Exam: General appearance: Alert in NAD, conversant Eyes: anicteric sclerae, moist conjunctivae; no lid-lag; PERRLA HENT: Atraumatic; oropharynx clear with moist mucous membranes and no mucosal ulcerations/no oral thrush; normal hard and soft palate. Normal external ears. Neck: Trachea midline; supple, no thyromegaly or lymphadenopathy Lungs: CTA, with normal respiratory effort and no intercostal retractions CV: RRR, no murmurs Abdomen: Soft, non-tender; no masses or hepatosplenomegaly Extremities: No peripheral edema or extremity lymphadenopathy Skin: Normal temperature, turgor and texture; no rash, ulcers or subcutaneous nodules Psych: Appropriate affect, alert and oriented to person, place and time. Neuro: alert and oriented x 3. Moving all extermities Lines: right fem TLC - Constitutional Vitals: Vital Signs Temp Pulse Resp BP Pulse Ox 99.0 F 118 H 18 151/94 93 09/30/18 17:11 09/30/18 17:11 09/30/18 17:11 09/30/18 17:11 09/30/18 17:11 Temperature -Last 24 Hours Temperature 99.0 F Temperature 98.2 F Temperature 97.9 F Temperature 97.9 F - Labs CBC & Chem 7: 09/28/18 09:49 09/29/18 13:51 Labs: Abnormal lab results 09/29/18 09/30/18 09/30/18 Range/Units 21:32 07:34 11:44 POC Glucose 309 H 318 H 292 H (70-105) 09/30/18 Range/Units 16:30 POC Glucose 221 H (70-105)
[2018-09-30 20:24] LABS: Hematocrit TNR % (30.3-42.9); Hemoglobin TNR gm/dl (10.1-14.3); Mean Corpuscular HGB Conc TNR % (30-34); Mean Corpuscular Volume TNR fl (79-97); Mean Platelet Volume TNR fl (6-12); Platelet Count TNR K/mm3 (140-440); Red Blood Count TNR M/mm3 (3.65-5.03); Red Cell Distribution Width TNR % (13.2-15.2)
[2018-09-30 20:25] LABS: Lymphocytes % (Auto) TNR % (13.4-35.0)
[2018-09-30 20:26] LABS: Basophils % (Auto) TNR % (0.0-1.8); Eosinophils % (Auto) TNR % (0.0-4.3); Lymphocytes # (Auto) TNR K/mm3 (1.2-5.4); Monocytes % (Auto) TNR % (0.0-7.3)
[2018-09-30 20:27] LABS: Basophils # (Auto) TNR K/mm3 (0.0-0.1); Eosinophils # (Auto) TNR K/mm3 (0.0-0.4); Monocytes # (Auto) TNR K/mm3 (0.0-0.8)
[2018-09-30 21:00] LABS: Basophils % (Auto) 0.5 % (0.0-1.8); Eosinophils # (Auto) 0.1 K/mm3 (0.0-0.4); Eosinophils % (Auto) 1.1 % (0.0-4.3); Lymphocytes # (Auto) 1.5 K/mm3 (1.2-5.4); Lymphocytes % (Auto) 15.7 % (13.4-35.0); Mean Corpuscular HGB Conc 34 % (30-34); Mean Corpuscular Volume 86 fl (79-97); Monocytes # (Auto) 0.5 K/mm3 (0.0-0.8); Monocytes % (Auto) 5.5 % (0.0-7.3); Platelet Count 208 K/mm3 (140-440); Red Blood Count 3.83 M/mm3 (3.65-5.03); Red Cell Distribution Width 14.7 % (13.2-15.2)
[2018-09-30 21:13] LABS: Hematocrit 32.8 % (30.3-42.9)
[2018-09-30] MEDS: LOVENOX SUB-Q SCH (21:57)
[2018-09-30] MEDS ORDERED: XANAX PO PRN (21:58)
[2018-09-30] MEDS ORDERED: DULCOLAX PO PRN (22:00)
--- NOTE | 2018-09-30 22:11 | History and Physical Report ---
History of Present Illness Date of examination: 09/30/18 Date of admission: 09/28/18 11:50 Chief complaint: fever History of present illness: Pt is a 38 YO BF with PMHx of DM, HTN present to [facility] from a SNF for fever, pt was discharged 24 hrs ago after treatment for DKA, Sepsis, Encophalopathy, and Acute Renal Failure. Pt is awake, non-communicative, she is unable to provide history, most of the history was taking from the ER physician and review of pt's chart. Pt was transferred from the SNF for fever, on arrival to the ER her temp was 100.3, her troponin was 0.278, Pt's mother was called to confirm her code status, she is currently a DNR. Past History Past Medical History: diabetes, hypertension Past Surgical History: No surgical history, Other (reviewed) Social history: single Family history: diabetes, hypertension Medications and Allergies Allergies Allergy/AdvReac Type Severity Reaction Status Date / Time No Known Allergies Allergy Unverified 09/28/18 10:50 Home Medications Medication Instructions Recorded Confirmed Last Taken Type ALPRAZolam [Xanax] 0.25 mg PO DAILY PRN 09/30/18 09/30/18 Unknown History ARIPiprazole [Aripiprazole] 10 mg PO HS 09/30/18 09/30/18 Unknown History Bisacodyl [Dulcolax] 5 mg PO HS PRN 09/30/18 09/30/18 Unknown History Lisinopril [Zestril] 40 mg PO DAILY 09/30/18 09/30/18 Unknown History hydroCHLOROthiazide [HCTZ] 25 mg PO QDAY 09/30/18 09/30/18 Unknown History Active Meds: Active Medications Acetaminophen (Tylenol) 650 mg PO Q6H PRN PRN Reason: Pain, Mild (1-3) Last Admin: 09/30/18 06:23 Dose: 650 mg Documented by: Alprazolam (Xanax) 0.25 mg PO DAILY PRN PRN Reason: Anxiety Aripiprazole (Abilify) 10 mg PO HS JL Bisacodyl (Dulcolax) 5 mg PO HS PRN PRN Reason: Constipation Dextrose (D50w (25gm) Syringe) 0 ml IV PRN PRN PRN Reason: Hypoglycemia Dextrose (D50w (25gm) Syringe) 0 ml IV ONCE PRN PRN Reason: Hypoglycemia Docusate Sodium (Colace) 100 mg PO BID PRN PRN Reason: Constipation Last Admin: 09/30/18 21:58 Dose: 100 mg Documented by: Enoxaparin Sodium (Lovenox) 40 mg SUB-Q QDAY@2200 [facility] Last Admin: 09/30/18 21:57 Dose: 40 mg Documented by: Hydralazine HCl (Apresoline) 10 mg IV Q4HR PRN PRN Reason: BP >160/100 Hydrochlorothiazide (Hctz) 25 mg PO QDAY [facility] Sodium Chloride (Nacl 0.45% 1000 Ml) 1,000 mls @ 125 mls/hr IV DIRECT [facility] Last Admin: 09/30/18 13:05 Dose: 125 mls/hr Documented by: Insulin Glargine (Lantus) 25 units SUB-Q QHS [facility] Last Admin: 09/30/18 21:55 Dose: 25 units Documented by: Insulin Human Lispro (Humalog) 0 unit SUB-Q [facility]; Protocol Last Admin: 09/30/18 18:02 Dose: 3 unit Documented by: Insulin Human Lispro (Humalog) 8 unit SUB-Q [facility] Last Admin: 09/30/18 18:02 Dose: 8 unit Documented by: Labetalol HCl (Normodyne) 10 mg IV Q4H PRN PRN Reason: BP >160/100; hold for HR <60 Lisinopril (Zestril) 40 mg PO DAILY [facility] Ondansetron HCl (Zofran) 4 mg IV Q4H PRN PRN Reason: Nausea And Vomiting Last Admin: 09/30/18 21:57 Dose: 4 mg Documented by: Sodium Chloride (Sodium Chloride Flush Syringe 10 Ml) 10 ml IV BID [facility] Last Admin: 09/30/18 12:57 Dose: 10 ml Documented by: Sodium Chloride (Sodium Chloride Flush Syringe 10 Ml) 10 ml IV PRN PRN PRN Reason: LINE FLUSH Exam - Constitutional Vitals: Temp Pulse Resp BP Pulse Ox 99.0 F 118 H 18 151/94 93 09/30/18 17:11 09/30/18 17:11 09/30/18 17:11 09/30/18 17:11 09/30/18 17:11 Results - Labs CBC & Chem 7: 09/30/18 20:42 09/29/18 13:51 Labs: Laboratory Last Values WBC 9.3 K/mm3 (4.5-11.0) 09/30/18 20:42 RBC 3.83 M/mm3 (3.65-5.03) 09/30/18 20:42 Hgb 11.0 gm/dl (10.1-14.3) D 09/30/18 20:42 Hct 32.8 % (30.3-42.9) D 09/30/18 20:42 MCV 86 fl (79-97) 09/30/18 20:42 MCH 29 pg (28-32) 09/30/18 20:42 MCHC 34 % (30-34) 09/30/18 20:42 RDW 14.7 % (13.2-15.2) 09/30/18 20:42 Plt Count 208 K/mm3 (140-440) 09/30/18 20:42 Lymph % (Auto) 15.7 % (13.4-35.0) 09/30/18 20:42 [place] % (Auto) 5.5 % (0.0-7.3) 09/30/18 20:42 Eos % (Auto) 1.1 % (0.0-4.3) 09/30/18 20:42 Baso % (Auto) 0.5 % (0.0-1.8) 09/30/18 20:42 Lymph # 1.5 K/mm3 (1.2-5.4) 09/30/18 20:42 [place] # 0.5 K/mm3 (0.0-0.8) 09/30/18 20:42 Eos # 0.1 K/mm3 (0.0-0.4) 09/30/18 20:42 Baso # 0.0 K/mm3 (0.0-0.1) 09/30/18 20:42 Add Manual Diff TNR 09/30/18 19:47 Total Counted 100 09/28/18 09:49 Seg Neutrophils % 77.2 % (40.0-70.0) H 09/30/18 20:42 Seg Neuts % (Manual) 83.0 % (40.0-70.0) H 09/28/18 09:49 Band Neutrophils % 0 % 09/28/18 09:49 Lymphocytes % (Manual) 8.0 % (13.4-35.0) L 09/28/18 09:49 Reactive Lymphs % (Man) 0 % 09/28/18 09:49 Monocytes % (Manual) 7.0 % (0.0-7.3) 09/28/18 09:49 Eosinophils % (Manual) 0 % (0.0-4.3) 09/28/18 09:49 Basophils % (Manual) 1.0 % (0.0-1.8) 09/28/18 09:49 Metamyelocytes % 0 % 09/28/18 09:49 Myelocytes % 1.0 % 09/28/18 09:49 Promyelocytes % 0 % 09/28/18 09:49 Blast Cells % 0 % 09/28/18 09:49 Nucleated RBC % Not Reportable 09/28/18 09:49 Seg Neutrophils # 7.2 K/mm3 (1.8-7.7) 09/30/18 20:42 Seg Neutrophils # Man 24.7 K/mm3 (1.8-7.7) H 09/28/18 09:49 Band Neutrophils # 0.0 K/mm3 09/28/18 09:49 Lymphocytes # (Manual) 2.4 K/mm3 (1.2-5.4) 09/28/18 09:49 Abs React Lymphs (Man) 0.0 K/mm3 09/28/18 09:49 Monocytes # (Manual) 2.1 K/mm3 (0.0-0.8) H 09/28/18 09:49 Eosinophils # (Manual) 0.0 K/mm3 (0.0-0.4) 09/28/18 09:49 Basophils # (Manual) 0.3 K/mm3 (0.0-0.1) H 09/28/18 09:49 Metamyelocytes # 0.0 K/mm3 09/28/18 09:49 Myelocytes # 0.3 K/mm3 09/28/18 09:49 Promyelocytes # 0.0 K/mm3 09/28/18 09:49 Blast Cells # 0.0 K/mm3 09/28/18 09:49 WBC Morphology Not Reportable 09/28/18 09:49 Hypersegmented Neuts Not Reportable 09/28/18 09:49 Hyposegmented Neuts Not Reportable 09/28/18 09:49 Hypogranular Neuts Not Reportable 09/28/18 09:49 Smudge Cells Not Reportable 09/28/18 09:49 Toxic Granulation Not Reportable 09/28/18 09:49 Toxic Vacuolation Not Reportable 09/28/18 09:49 Dohle Bodies Not Reportable 09/28/18 09:49 Pelger-Huet Anomaly Not Reportable 09/28/18 09:49 Kerry Rods Not Reportable 09/28/18 09:49 Platelet Estimate Consistent w auto 09/28/18 09:49 Clumped Platelets Not Reportable 09/28/18 09:49 Plt Clumps, EDTA Not Reportable 09/28/18 09:49 Large Platelets Not Reportable 09/28/18 09:49 Giant Platelets Not Reportable 09/28/18 09:49 Platelet Satelliting Not Reportable 09/28/18 09:49 Plt Morphology Comment Not Reportable 09/28/18 09:49 RBC Morphology Normal 09/28/18 09:49 Dimorphic RBCs Not Reportable 09/28/18 09:49 Polychromasia Not Reportable 09/28/18 09:49 Hypochromasia Not Reportable 09/28/18 09:49 Poikilocytosis Not Reportable 09/28/18 09:49 Anisocytosis Not Reportable 09/28/18 09:49 Microcytosis Not Reportable 09/28/18 09:49 Macrocytosis Not Reportable 09/28/18 09:49 Spherocytes Not Reportable 09/28/18 09:49 Pappenheimer Bodies Not Reportable 09/28/18 09:49 Sickle Cells Not Reportable 09/28/18 09:49 Target Cells Not Reportable 09/28/18 09:49 Tear Drop Cells Not Reportable 09/28/18 09:49 Ovalocytes Not Reportable 09/28/18 09:49 Helmet Cells Not Reportable 09/28/18 09:49 Vance-[place] Bodies Not Reportable 09/28/18 09:49 [place] Rings Not Reportable 09/28/18 09:49 Dejuan Cells Not Reportable 09/28/18 09:49 Bite Cells Not Reportable 09/28/18 09:49 Crenated Cell Not Reportable 09/28/18 09:49 Elliptocytes Not Reportable 09/28/18 09:49 Acanthocytes (Spur) Not Reportable 09/28/18 09:49 Rouleaux Not Reportable 09/28/18 09:49 Hemoglobin C Crystals Not Reportable 09/28/18 09:49 Schistocytes Not Reportable 09/28/18 09:49 Malaria parasites Not Reportable 09/28/18 09:49 Santino Bodies Not Reportable 09/28/18 09:49 Hem Pathologist Commnt No 09/28/18 09:49 VBG pH 6.874 (7.320-7.420) L* 09/28/18 09:49 Sodium 150 mmol/L (137-145) H 09/29/18 13:51 Potassium 4.2 mmol/L (3.6-5.0) 09/29/18 13:51 Chloride 116.9 mmol/L (98-107) H 09/29/18 13:51 Carbon Dioxide 14 mmol/L (22-30) L 09/29/18 13:51 Anion Gap 23 mmol/L 09/29/18 13:51 BUN 13 mg/dL (7-17) 09/29/18 13:51 Creatinine 1.1 mg/dL (0.7-1.2) 09/29/18 13:51 Estimated GFR > 60 ml/min 09/29/18 13:51 BUN/Creatinine Ratio 12 % 09/29/18 13:51 Glucose 254 mg/dL (65-100) H 09/29/18 13:51 POC Glucose 221 (70-105) H 09/30/18 16:30 Lactic Acid 2.70 mmol/L (0.7-2.0) H* 09/29/18 07:28 Calcium 7.7 mg/dL (8.4-10.2) L 09/29/18 13:51 Phosphorus 9.60 mg/dL (2.5-4.5) H 09/28/18 12:44 Magnesium 2.40 mg/dL (1.7-2.3) H 09/28/18 12:44 Total Bilirubin 0.20 mg/dL (0.1-1.2) 09/28/18 09:49 AST 11 units/L (5-40) 09/28/18 09:49 ALT 8 units/L (7-56) 09/28/18 09:49 Alkaline Phosphatase 117 units/L (35-129) 09/28/18 09:49 Ammonia 114.0 umol/L (25-60) H 09/28/18 09:49 C-Reactive Protein 2.10 mg/dL (0.00-1.30) H 09/28/18 15:17 Total Protein 8.5 g/dL (6.3-8.2) H 09/28/18 09:49 Albumin 4.2 g/dL (3.9-5) 09/28/18 09:49 Albumin/Globulin Ratio 1.0 % 09/28/18 09:49 HCG, Qual Negative (Negative) 09/28/18 09:49 Urine Color Straw (Yellow) 09/28/18 12:44 Urine Turbidity Clear (Clear) 09/28/18 12:44 Urine pH 5.0 (5.0-7.0) 09/28/18 12:44 Ur Specific [place] 1.014 (1.003-1.030) 09/28/18 12:44 Urine Protein 30 mg/dl mg/dL (Negative) 09/28/18 12:44 Urine Glucose (UA) >=500 mg/dL (Negative) 09/28/18 12:44 Urine Ketones 80 mg/dL (Negative) 09/28/18 12:44 Urine Blood Sm (Negative) 09/28/18 12:44 Urine Nitrite Neg (Negative) 09/28/18 12:44 Urine Bilirubin Neg (Negative) 09/28/18 12:44 Urine Urobilinogen < 2.0 mg/dL (<2.0) 09/28/18 12:44 Ur Leukocyte Esterase Neg (Negative) 09/28/18 12:44 Urine WBC (Auto) 1.0 /HPF (0.0-6.0) 09/28/18 12:44 Urine RBC (Auto) < 1.0 /HPF (0.0-6.0) 09/28/18 12:44 U Epithel Cells (Auto) 1.0 /HPF (0-13.0) 09/28/18 12:44 Urine Bacteria (Auto) 1+ /HPF (Negative) 09/28/18 12:44 Urine Mucus Few /HPF 09/28/18 12:44 Urine Opiates Screen Presumptive negative 09/28/18 12:44 Urine Methadone Screen Presumptive negative 09/28/18 12:44 Ur Barbiturates Screen Presumptive negative 09/28/18 12:44 Ur Phencyclidine Scrn Presumptive negative 09/28/18 12:44 Ur Amphetamines Screen Presumptive negative 09/28/18 12:44 U Benzodiazepines Scrn Presumptive negative 09/28/18 12:44 Urine Cocaine Screen Presumptive negative 09/28/18 12:44 U Marijuana (THC) Screen Presumptive negative 09/28/18 12:44 Drugs of Abuse Note Disclamer 09/28/18 12:44 Plasma/Serum Alcohol < 0.01 % (0-0.07) 09/28/18 09:49
[2018-09-30] MEDS: ABILIFY PO SCH (23:24)
--- NOTE | 2018-09-30 23:36 | Progress Note ---
Assessment and Plan Patient alert, awake. No complaint of chest pain, shortness of breath or cough.Patient resting on O2. O2 saturation 97%. - Patient Problems (1) Acidosis Current Visit: Yes Status: Acute Plan to address problem: Improving. Bicarb 23 Anion gap 19. Repeating blood gases. (2) Altered mental status Current Visit: Yes Status: Acute Qualifiers: Altered mental status type: transient alteration of awareness Qualified Co de(s): R40.4 - Transient alteration of awareness Plan to address problem: Improved. Management as per primary care. (3) Diabetic ketoacidosis Current Visit: Yes Status: Acute Qualifiers: Diabetes mellitus type: type 1 Diabetes mellitus complication detail: without coma Qualified Code(s): E10.10 - Type 1 diabetes mellitus with ketoacidosis without coma Plan to address problem: Management as per primary care. (4) Hyperkalemia Current Visit: Yes Status: Acute Plan to address problem: Improved. To days K+ is 3,5, (5) Leukocytosis Current Visit: Yes Status: Acute Qualifiers: Leukocytosis type: unspecified Qualified Code(s): D72.829 - Elevated white blood cell count, unspecified Plan to address problem: Improved. to days WBC 9.3 Subjective Date of service: 09/30/18 Principal diagnosis: SIRS Interval history: Patient alert, awake. No complaint of chest pain, shortness of breath or cough.Patient resting on O2. O2 saturation 97%. Objective Vital Signs - 12hr 09/30/18 09/30/18 11:41 17:11 Temperature 98.2 F 99.0 F Pulse Rate 116 H 118 H Respiratory 24 18 Rate Blood Pressure 125/87 151/94 O2 Sat by Pulse 94 93 Oximetry Constitutional: no acute distress, alert Eyes: non-icteric Neck: supple, no lymphadenopathy Ascultation: Bilateral: clear Cardiovascular: regular rate and rhythm Gastrointestinal: normoactive bowel sounds, soft, non-tender Integumentary: normal Extremities: no cyanosis, no edema Neurologic: normal mental status, non-focal exam, pupils equal and round, CN II- XII normal Psychiatric: mood appropriate CBC and BMP: 09/30/18 20:42 10/01/18 03:41 Abnormal lab findings: Abnormal Labs 09/28/18 09/28/18 09/28/18 09:28 09:49 09:49 WBC 29.7 H Hgb 14.4 H Hct 51.1 H MCV 102 H MCHC 28 L RDW 15.5 H Plt Count 602 H Seg Neutrophils % Seg Neuts % (Manual) 83.0 H Lymphocytes % (Manual) 8.0 L Seg Neutrophils # Man 24.7 H Monocytes # (Manual) 2.1 H Basophils # (Manual) 0.3 H VBG pH Sodium 126 L Potassium 8.2 H* Chloride 81.7 L Carbon Dioxide 4 L* BUN 31 H Creatinine 1.9 H Glucose 1000 H* POC Glucose > 500 H Lactic Acid Calcium Phosphorus Magnesium Ammonia C-Reactive Protein Total Protein 8.5 H 09/28/18 09/28/18 09/28/18 09:49 09:49 12:44 WBC Hgb Hct MCV MCHC RDW Plt Count Seg Neutrophils % Seg Neuts % (Manual) Lymphocytes % (Manual) Seg Neutrophils # Man Monocytes # (Manual) Basophils # (Manual) VBG pH 6.874 L* Sodium Potassium Chloride Carbon Dioxide BUN Creatinine Glucose POC Glucose Lactic Acid Calcium Phosphorus 9.60 H Magnesium 2.40 H Ammonia 114.0 H C-Reactive Protein Total Protein 09/28/18 09/28/18 09/28/18 12:44 12:44 13:48 WBC Hgb Hct MCV MCHC RDW Plt Count Seg Neutrophils % Seg Neuts % (Manual) Lymphocytes % (Manual) Seg Neutrophils # Man Monocytes # (Manual) Basophils # (Manual) VBG pH Sodium 136 L D 146 H D Potassium 7.0 H* 5.4 H D Chloride 95.3 L Carbon Dioxide 3 L* 4 L* BUN 31 H 28 H Creatinine 1.8 H 1.4 H Glucose 896 H* 595 H* POC Glucose Lactic Acid 3.40 H* Calcium 7.9 L 6.8 L Phosphorus Magnesium Ammonia C-Reactive Protein Total Protein 09/28/18 09/28/18 09/28/18 15:06 15:17 16:57 WBC Hgb Hct MCV MCHC RDW Plt Count Seg Neutrophils % Seg Neuts % (Manual) Lymphocytes % (Manual) Seg Neutrophils # Man Monocytes # (Manual) Basophils # (Manual) VBG pH Sodium 146 H 146 H Potassium Chloride 112.0 H 109.2 H Carbon Dioxide 5 L* 5 L* BUN 23 H 22 H Creatinine Glucose 446 H 339 H POC Glucose Lactic Acid Calcium 6.0 L 6.5 L Phosphorus Magnesium Ammonia C-Reactive Protein 2.10 H Total Protein 09/28/18 09/28/18 09/28/18 18:15 19:23 20:29 WBC Hgb Hct MCV MCHC RDW Plt Count Seg Neutrophils % Seg Neuts % (Manual) Lymphocytes % (Manual) Seg Neutrophils # Man Monocytes # (Manual) Basophils # (Manual) VBG pH Sodium Potassium Chloride Carbon Dioxide BUN Creatinine Glucose POC Glucose 263 H 232 H 206 H Lactic Acid Calcium Phosphorus Magnesium Ammonia C-Reactive Protein Total Protein 09/28/18 09/28/18 09/28/18 21:38 21:45 21:45 WBC Hgb Hct MCV MCHC RDW Plt Count Seg Neutrophils % Seg Neuts % (Manual) Lymphocytes % (Manual) Seg Neutrophils # Man Monocytes # (Manual) Basophils # (Manual) VBG pH Sodium 149 H Potassium 5.1 H Chloride 113.8 H Carbon Dioxide 11 L BUN Creatinine Glucose 223 H POC Glucose 238 H Lactic Acid 2.40 H* Calcium 6.9 L Phosphorus Magnesium Ammonia C-Reactive Protein Total Protein 09/28/18 09/28/18 09/28/18 22:34 23:04 23:52 WBC Hgb Hct MCV MCHC RDW Plt Count Seg Neutrophils % Seg Neuts % (Manual) Lymphocytes % (Manual) Seg Neutrophils # Man Monocytes # (Manual) Basophils # (Manual) VBG pH Sodium Potassium Chloride Carbon Dioxide BUN Creatinine Glucose POC Glucose 216 H 208 H Lactic Acid 2.80 H* Calcium Phosphorus Magnesium Ammonia C-Reactive Protein Total Protein 09/29/18 09/29/18 09/29/18 00:00 00:41 00:53 WBC Hgb Hct MCV MCHC RDW Plt Count Seg Neutrophils % Seg Neuts % (Manual) Lymphocytes % (Manual) Seg Neutrophils # Man Monocytes # (Manual) Basophils # (Manual) VBG pH Sodium Potassium Chloride Carbon Dioxide BUN Creatinine Glucose POC Glucose 227 H Lactic Acid 3.70 H* 4.20 H* Calcium Phosphorus Magnesium Ammonia C-Reactive Protein Total Protein 09/29/18 09/29/18 09/29/18 01:40 02:48 03:58 WBC Hgb Hct MCV MCHC RDW Plt Count Seg Neutrophils % Seg Neuts % (Manual) Lymphocytes % (Manual) Seg Neutrophils # Man Monocytes # (Manual) Basophils # (Manual) VBG pH Sodium Potassium Chloride Carbon Dioxide BUN Creatinine Glucose POC Glucose 226 H 173 H 153 H Lactic Acid Calcium Phosphorus Magnesium Ammonia C-Reactive Protein Total Protein 09/29/18 09/29/18 09/29/18 04:09 04:09 05:45 WBC Hgb Hct MCV MCHC RDW Plt Count Seg Neutrophils % Seg Neuts % (Manual) Lymphocytes % (Manual) Seg Neutrophils # Man Monocytes # (Manual) Basophils # (Manual) VBG pH Sodium 151 H Potassium 3.3 L D Chloride 116.4 H Carbon Dioxide 15 L BUN Creatinine Glucose 128 H POC Glucose Lactic Acid 3.80 H* 3.30 H* Calcium 7.5 L Phosphorus Magnesium Ammonia C-Reactive Protein Total Protein 09/29/18 09/29/18 09/29/18 05:52 06:58 07:28 WBC Hgb Hct MCV MCHC RDW Plt Count Seg Neutrophils % Seg Neuts % (Manual) Lymphocytes % (Manual) Seg Neutrophils # Man Monocytes # (Manual) Basophils # (Manual) VBG pH Sodium Potassium Chloride Carbon Dioxide BUN Creatinine Glucose POC Glucose 165 H 128 H Lactic Acid 2.70 H* Calcium Phosphorus Magnesium Ammonia C-Reactive Protein Total Protein 09/29/18 09/29/18 09/29/18 08:06 08:23 09:15 WBC Hgb Hct MCV MCHC RDW Plt Count Seg Neutrophils % Seg Neuts % (Manual) Lymphocytes % (Manual) Seg Neutrophils # Man Monocytes # (Manual) Basophils # (Manual) VBG pH Sodium 152 H Potassium Chloride 120.7 H Carbon Dioxide 15 L BUN Creatinine Glucose 126 H POC Glucose 143 H 154 H Lactic Acid Calcium 7.6 L Phosphorus Magnesium Ammonia C-Reactive Protein Total Protein 09/29/18 09/29/18 09/29/18 10:13 11:43 13:51 WBC Hgb Hct MCV MCHC RDW Plt Count Seg Neutrophils % Seg Neuts % (Manual) Lymphocytes % (Manual) Seg Neutrophils # Man Monocytes # (Manual) Basophils # (Manual) VBG pH Sodium 150 H Potassium Chloride 116.9 H Carbon Dioxide 14 L BUN Creatinine Glucose 254 H POC Glucose 126 H 124 H Lactic Acid Calcium 7.7 L Phosphorus Magnesium Ammonia C-Reactive Protein Total Protein 09/29/18 09/29/18 09/30/18 16:31 21:32 07:34 WBC Hgb Hct MCV MCHC RDW Plt Count Seg Neutrophils % Seg Neuts % (Manual) Lymphocytes % (Manual) Seg Neutrophils # Man Monocytes # (Manual) Basophils # (Manual) VBG pH Sodium Potassium Chloride Carbon Dioxide BUN Creatinine Glucose POC Glucose 364 H 309 H 318 H Lactic Acid Calcium Phosphorus Magnesium Ammonia C-Reactive Protein Total Protein 09/30/18 09/30/18 09/30/18 11:44 16:30 20:42 WBC Hgb Hct MCV MCHC RDW Plt Count Seg Neutrophils % 77.2 H Seg Neuts % (Manual) Lymphocytes % (Manual) Seg Neutrophils # Man Monocytes # (Manual) Basophils # (Manual) VBG pH Sodium Potassium Chloride Carbon Dioxide BUN Creatinine Glucose POC Glucose 292 H 221 H Lactic Acid Calcium Phosphorus Magnesium Ammonia C-Reactive Protein Total Protein Chest x-ray: report reviewed (Unremarkable AP chest.), image reviewed
[2018-10-01] MEDS: ZOFRAN IV PRN ×3 (02:48→23:24)
[2018-10-01 04:18] LABS: BUN/Creatinine Ratio 9; Blood Urea Nitrogen 6 mg/dL (7-17); Calcium 8.4 mg/dL (8.4-10.2); Hemolysis Index 8
[2018-10-01] MEDS: HumaLOG SUB-Q SCH ×7 (08:50→22:58)
[2018-10-01] MEDS: NACL 0.45% 1000 ML 1,000 ML IV SCH (08:52)
[2018-10-01] MEDS ORDERED: VASELINE LIP THERAPY TP PRN (09:00)
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
[2018-10-01] MEDS ORDERED: K-DUR PO ONE (10:18)
[2018-10-01] MEDS: HCTZ PO SCH (10:49)
[2018-10-01] MEDS: ZESTRIL PO SCH (10:49)
[2018-10-01] MEDS: SODIUM CHLORIDE FLUSH SYRINGE 10 ML IV SCH ×2 (10:49→23:08)
[2018-10-01] MEDS ORDERED: FLEET PR PRN (11:26)
[2018-10-01] MEDS ORDERED: DULCOLAX PR PRN (11:26)
[2018-10-01] MEDS: MIRALAX 3350 PO SCH (13:14)
[2018-10-01] MEDS: SENOKOT S PO PRN (14:22)
--- NOTE | 2018-10-01 15:29 | Progress Note ---
Assessment and Plan Patient alert, awake. No complaint of chest pain, shortness of breath or cough.Patient resting on O2. O2 saturation 95%.Patients blood gases reported PH 7.4, PCO2 36, PO2 54, HCO3 22, O2 saturation 88%. Patient is candidate for home O2. Recommend O2 2 litres via nasal canula. - Patient Problems (1) Acidosis Current Visit: Yes Status: Acute Plan to address problem: Improving. Bicarb 23 Anion gap 19. (2) Altered mental status Current Visit: Yes Status: Acute Qualifiers: Altered mental status type: transient alteration of awareness Qualified Code(s): R40.4 - Transient alteration of awareness Plan to address problem: Improved. Management as per primary care. (3) Diabetic ketoacidosis Current Visit: Yes Status: Acute Qualifiers: Diabetes mellitus type: type 1 Diabetes mellitus complication detail: without coma Qualified Code(s): E10.10 - Type 1 diabetes mellitus with ketoacidosis without coma Plan to address problem: Management as per primary care. (4) Hyperkalemia Current Visit: Yes Status: Acute Plan to address problem: Improved. To days K+ is 3,5, (5) Leukocytosis Current Visit: Yes Status: Acute Qualifiers: Leukocytosis type: unspecified Qualified Code(s): D72.829 - Elevated white blood cell count, unspecified Plan to address problem: Improved. to days WBC 9.3 Subjective Date of service: 10/01/18 Principal diagnosis: SIRS Interval history: Patient alert, awake. No complaint of chest pain, shortness of breath or cough.Patient resting on O2. O2 saturation 95%. Patients blood gases reported PH 7.4, PCO2 36, PO2 54, HCO3 22, O2 saturation 88%. Patient is candidate for home O2. Recommend O2 2 litres via nasal canula. Objective Vital Signs - 12hr 10/01/18 10/01/18 10/01/18 05:53 11:47 12:09 Temperature 98.1 F 97.9 F Pulse Rate 104 H 109 H Respiratory 20 24 Rate Blood Pressure 144/96 137/94 O2 Sat by Pulse 95 96 90 Oximetry Constitutional: no acute distress, alert Eyes: non-icteric Neck: supple, no lymphadenopathy Ascultation: Bilateral: clear Cardiovascular: regular rate and rhythm Gastrointestinal: normoactive bowel sounds, soft, non-tender Integumentary: normal Extremities: no cyanosis, no edema Neurologic: normal mental status, non-focal exam, pupils equal and round, CN II- XII normal Psychiatric: mood appropriate CBC and BMP: 09/30/18 20:42 10/01/18 03:41 ABG, PT/INR, D-dimer: ABG POC ABG pH 7.403 (7.35-7.45) 10/01/18 11:44 POC ABG pCO2 35.6 (35-45) 10/01/18 11:44 POC ABG pO2 54 (80-105) L 10/01/18 11:44 POC ABG HCO3 22.2 10/01/18 11:44 POC ABG Total CO2 23 10/01/18 11:44 POC ABG O2 Sat 88 10/01/18 11:44 Abnormal lab findings: Abnormal Labs 09/28/18 09/28/18 09/28/18 09:28 09:49 09:49 WBC 29.7 H Hgb 14.4 H Hct 51.1 H MCV 102 H MCHC 28 L RDW 15.5 H Plt Count 602 H Seg Neutrophils % Seg Neuts % (Manual) 83.0 H Lymphocytes % (Manual) 8.0 L Seg Neutrophils # Man 24.7 H Monocytes # (Manual) 2.1 H Basophils # (Manual) 0.3 H POC ABG pO2 VBG pH Sodium 126 L Potassium 8.2 H* Chloride 81.7 L Carbon Dioxide 4 L* BUN 31 H Creatinine 1.9 H Glucose 1000 H* POC Glucose > 500 H Hemoglobin A1c Lactic Acid Calcium Phosphorus Magnesium Ammonia C-Reactive Protein Total Protein 8.5 H 09/28/18 09/28/18 09/28/18 09:49 09:49 12:44 WBC Hgb Hct MCV MCHC RDW Plt Count Seg Neutrophils % Seg Neuts % (Manual) Lymphocytes % (Manual) Seg Neutrophils # Man Monocytes # (Manual) Basophils # (Manual) POC ABG pO2 VBG pH 6.874 L* Sodium Potassium Chloride Carbon Dioxide BUN Creatinine Glucose POC Glucose Hemoglobin A1c Lactic Acid Calcium Phosphorus 9.60 H Magnesium 2.40 H Ammonia 114.0 H C-Reactive Protein Total Protein 09/28/18 09/28/18 09/28/18 12:44 12:44 13:48 WBC Hgb Hct MCV MCHC RDW Plt Count Seg Neutrophils % Seg Neuts % (Manual) Lymphocytes % (Manual) Seg Neutrophils # Man Monocytes # (Manual) Basophils # (Manual) POC ABG pO2 VBG pH Sodium 136 L D 146 H D Potassium 7.0 H* 5.4 H D Chloride 95.3 L Carbon Dioxide 3 L* 4 L* BUN 31 H 28 H Creatinine 1.8 H 1.4 H Glucose 896 H* 595 H* POC Glucose Hemoglobin A1c Lactic Acid 3.40 H* Calcium 7.9 L 6.8 L Phosphorus Magnesium Ammonia C-Reactive Protein Total Protein 09/28/18 09/28/18 09/28/18 15:06 15:17 16:57 WBC Hgb Hct MCV MCHC RDW Plt Count Seg Neutrophils % Seg Neuts % (Manual) Lymphocytes % (Manual) Seg Neutrophils # Man Monocytes # (Manual) Basophils # (Manual) POC ABG pO2 VBG pH Sodium 146 H 146 H Potassium Chloride 112.0 H 109.2 H Carbon Dioxide 5 L* 5 L* BUN 23 H 22 H Creatinine Glucose 446 H 339 H POC Glucose Hemoglobin A1c Lactic Acid Calcium 6.0 L 6.5 L Phosphorus Magnesium Ammonia C-Reactive Protein 2.10 H Total Protein 09/28/18 09/28/18 09/28/18 18:15 19:23 20:29 WBC Hgb Hct MCV MCHC RDW Plt Count Seg Neutrophils % Seg Neuts % (Manual) Lymphocytes % (Manual) Seg Neutrophils # Man Monocytes # (Manual) Basophils # (Manual) POC ABG pO2 VBG pH Sodium Potassium Chloride Carbon Dioxide BUN Creatinine Glucose POC Glucose 263 H 232 H 206 H Hemoglobin A1c Lactic Acid Calcium Phosphorus Magnesium Ammonia C-Reactive Protein Total Protein 09/28/18 09/28/18 09/28/18 21:38 21:45 21:45 WBC Hgb Hct MCV MCHC RDW Plt Count Seg Neutrophils % Seg Neuts % (Manual) Lymphocytes % (Manual) Seg Neutrophils # Man Monocytes # (Manual) Basophils # (Manual) POC ABG pO2 VBG pH Sodium 149 H Potassium 5.1 H Chloride 113.8 H Carbon Dioxide 11 L BUN Creatinine Glucose 223 H POC Glucose 238 H Hemoglobin A1c Lactic Acid 2.40 H* Calcium 6.9 L Phosphorus Magnesium Ammonia C-Reactive Protein Total Protein 09/28/18 09/28/18 09/28/18 22:34 23:04 23:52 WBC Hgb Hct MCV MCHC RDW Plt Count Seg Neutrophils % Seg Neuts % (Manual) Lymphocytes % (Manual) Seg Neutrophils # Man Monocytes # (Manual) Basophils # (Manual) POC ABG pO2 VBG pH Sodium Potassium Chloride Carbon Dioxide BUN Creatinine Glucose POC Glucose 216 H 208 H Hemoglobin A1c Lactic Acid 2.80 H* Calcium Phosphorus Magnesium Ammonia C-Reactive Protein Total Protein 09/29/18 09/29/18 09/29/18 00:00 00:41 00:53 WBC Hgb Hct MCV MCHC RDW Plt Count Seg Neutrophils % Seg Neuts % (Manual) Lymphocytes % (Manual) Seg Neutrophils # Man Monocytes # (Manual) Basophils # (Manual) POC ABG pO2 VBG pH Sodium Potassium Chloride Carbon Dioxide BUN Creatinine Glucose POC Glucose 227 H Hemoglobin A1c Lactic Acid 3.70 H* 4.20 H* Calcium Phosphorus Magnesium Ammonia C-Reactive Protein Total Protein 09/29/18 09/29/18 09/29/18 01:40 02:48 03:58 WBC Hgb Hct MCV MCHC RDW Plt Count Seg Neutrophils % Seg Neuts % (Manual) Lymphocytes % (Manual) Seg Neutrophils # Man Monocytes # (Manual) Basophils # (Manual) POC ABG pO2 VBG pH Sodium Potassium Chloride Carbon Dioxide BUN Creatinine Glucose POC Glucose 226 H 173 H 153 H Hemoglobin A1c Lactic Acid Calcium Phosphorus Magnesium Ammonia C-Reactive Protein Total Protein 09/29/18 09/29/18 09/29/18 04:09 04:09 05:45 WBC Hgb Hct MCV MCHC RDW Plt Count Seg Neutrophils % Seg Neuts % (Manual) Lymphocytes % (Manual) Seg Neutrophils # Man Monocytes # (Manual) Basophils # (Manual) POC ABG pO2 VBG pH Sodium 151 H Potassium 3.3 L D Chloride 116.4 H Carbon Dioxide 15 L BUN Creatinine Glucose 128 H POC Glucose Hemoglobin A1c Lactic Acid 3.80 H* 3.30 H* Calcium 7.5 L Phosphorus Magnesium Ammonia C-Reactive Protein Total Protein 09/29/18 09/29/18 09/29/18 05:52 06:58 07:28 WBC Hgb Hct MCV MCHC RDW Plt Count Seg Neutrophils % Seg Neuts % (Manual) Lymphocytes % (Manual) Seg Neutrophils # Man Monocytes # (Manual) Basophils # (Manual) POC ABG pO2 VBG pH Sodium Potassium Chloride Carbon Dioxide BUN Creatinine Glucose POC Glucose 165 H 128 H Hemoglobin A1c Lactic Acid 2.70 H* Calcium Phosphorus Magnesium Ammonia C-Reactive Protein Total Protein 09/29/18 09/29/18 09/29/18 08:06 08:23 09:15 WBC Hgb Hct MCV MCHC RDW Plt Count Seg Neutrophils % Seg Neuts % (Manual) Lymphocytes % (Manual) Seg Neutrophils # Man Monocytes # (Manual) Basophils # (Manual) POC ABG pO2 VBG pH Sodium 152 H Potassium Chloride 120.7 H Carbon Dioxide 15 L BUN Creatinine Glucose 126 H POC Glucose 143 H 154 H Hemoglobin A1c Lactic Acid Calcium 7.6 L Phosphorus Magnesium Ammonia C-Reactive Protein Total Protein 09/29/18 09/29/18 09/29/18 10:13 11:43 13:51 WBC Hgb Hct MCV MCHC RDW Plt Count Seg Neutrophils % Seg Neuts % (Manual) Lymphocytes % (Manual) Seg Neutrophils # Man Monocytes # (Manual) Basophils # (Manual) POC ABG pO2 VBG pH Sodium 150 H Potassium Chloride 116.9 H Carbon Dioxide 14 L BUN Creatinine Glucose 254 H POC Glucose 126 H 124 H Hemoglobin A1c Lactic Acid Calcium 7.7 L Phosphorus Magnesium Ammonia C-Reactive Protein Total Protein 09/29/18 09/29/18 09/30/18 16:31 21:32 07:34 WBC Hgb Hct MCV MCHC RDW Plt Count Seg Neutrophils % Seg Neuts % (Manual) Lymphocytes % (Manual) Seg Neutrophils # Man Monocytes # (Manual) Basophils # (Manual) POC ABG pO2 VBG pH Sodium Potassium Chloride Carbon Dioxide BUN Creatinine Glucose POC Glucose 364 H 309 H 318 H Hemoglobin A1c Lactic Acid Calcium Phosphorus Magnesium Ammonia C-Reactive Protein Total Protein 09/30/18 09/30/18 09/30/18 11:44 16:30 19:28 WBC Hgb Hct MCV MCHC RDW Plt Count Seg Neutrophils % Seg Neuts % (Manual) Lymphocytes % (Manual) Seg Neutrophils # Man Monocytes # (Manual) Basophils # (Manual) POC ABG pO2 VBG pH Sodium Potassium Chloride Carbon Dioxide BUN Creatinine Glucose POC Glucose 292 H 221 H Hemoglobin A1c 14.2 H Lactic Acid Calcium Phosphorus Magnesium Ammonia C-Reactive Protein Total Protein 09/30/18 09/30/18 10/01/18 20:42 21:41 03:41 WBC Hgb Hct MCV MCHC RDW Plt Count Seg Neutrophils % 77.2 H Seg Neuts % (Manual) Lymphocytes % (Manual) Seg Neutrophils # Man Monocytes # (Manual) Basophils # (Manual) POC ABG pO2 VBG pH Sodium Potassium 3.5 L Chloride Carbon Dioxide BUN 6 L Creatinine Glucose 160 H POC Glucose 168 H Hemoglobin A1c Lactic Acid Calcium Phosphorus Magnesium Ammonia C-Reactive Protein Total Protein 10/01/18 10/01/18 10/01/18 07:48 11:44 12:25 WBC Hgb Hct MCV MCHC RDW Plt Count Seg Neutrophils % Seg Neuts % (Manual) Lymphocytes % (Manual) Seg Neutrophils # Man Monocytes # (Manual) Basophils # (Manual) POC ABG pO2 54 L VBG pH Sodium Potassium Chloride Carbon Dioxide BUN Creatinine Glucose POC Glucose 230 H 213 H Hemoglobin A1c Lactic Acid Calcium Phosphorus Magnesium Ammonia C-Reactive Protein Total Protein
[2018-10-01] MEDS: ABILIFY PO SCH (22:57)
[2018-10-01] MEDS: LOVENOX SUB-Q SCH (22:57)
[2018-10-01] MEDS: LANTUS SUB-Q SCH (23:06)
[2018-10-02] MEDS: NACL 0.45% 1000 ML 1,000 ML IV SCH ×2 (03:54→12:19)
[2018-10-02 05:17] LABS: BUN/Creatinine Ratio 7; Blood Urea Nitrogen 4 mg/dL (7-17); Hemolysis Index 3
[2018-10-02] MEDS: HumaLOG SUB-Q SCH ×7 (08:51→22:55)
--- NOTE | 2018-10-02 09:01 | Progress Note ---
Assessment and Plan Cultures: 09/28/2018 blood cultures: No growth A/P: 38-year-old female with diabetes mellitus type 1, hypertension, admitted with: 1) SIRS: Likely due to severe acidosis from uncontrolled diabetes and associated diabetic ketoacidosis. Chest x-ray without any evidence of pneumonia. UA not c/w UTI. Patient denies any fevers or upper respiratory symptoms prior to admission. Leucocytosis is likely reactive, now resolved. 2) Metabolic acidosis: Lactic acidosis, DKA 3) Diabetes mellitus type 1 uncontrolled 4) Hyponatremia followed by hypernatremia: improving. 5) Acute kidney injury: Improved Recs: Monitor off antibiotics Valentine Mac NP [facility] M: [id number] O:[phone] Subjective Date of service: 10/02/18 Principal diagnosis: SIRS Interval history: Patient seen and examined. Denied generalized pain, SOB, fever or rashes. Stated that continues to have issues with constipation. Nurses notes, labs and reports reviewed, discussed with patient. Mother at bedside. Objective - Exam Narrative Exam: General appearance: Alert in NAD, conversant Eyes: anicteric sclerae, moist conjunctivae; no lid-lag; PERRLA HENT: Atraumatic; oropharynx clear with moist mucous membranes and no mucosal ulcerations/no oral thrush; normal hard and soft palate. Normal external ears. Neck: Trachea midline; supple, no thyromegaly or lymphadenopathy Lungs: CTA, with normal respiratory effort and no intercostal retractions CV: RRR, no murmurs Abdomen: Soft, non-tender; no masses or hepatosplenomegaly Extremities: No peripheral edema or extremity lymphadenopathy Skin: Normal temperature, turgor and texture; no rash, ulcers or subcutaneous nodules Psych: Appropriate affect, alert and oriented to person, place and time. Neuro: alert and oriented x 3. Moving all extermities Lines: right fem TLC - Constitutional Vitals: Vital Signs Temp Pulse Resp BP Pulse Ox 98.4 F 91 H 20 167/103 94 10/02/18 05:41 10/02/18 05:41 10/02/18 05:41 10/02/18 05:41 10/02/18 07:29 Temperature -Last 24 Hours Temperature 98.4 F Temperature 98.7 F Temperature 98.2 F Temperature 97.9 F - Labs CBC & Chem 7: 10/02/18 09:45 10/02/18 04:26 Labs: Abnormal lab results 10/01/18 10/01/18 10/01/18 Range/Units 11:44 12:25 16:33 POC ABG pO2 54 L (80-105) Potassium (3.6-5.0) mmol/L BUN (7-17) mg/dL Creatinine (0.7-1.2) mg/dL Glucose (65-100) mg/dL POC Glucose 213 H 136 H (70-105) Calcium (8.4-10.2) mg/dL 10/01/18 10/02/18 10/02/18 Range/Units 21:28 04:26 08:04 POC ABG pO2 (80-105) Potassium 3.0 L (3.6-5.0) mmol/L BUN 4 L (7-17) mg/dL Creatinine 0.6 L (0.7-1.2) mg/dL Glucose 217 H (65-100) mg/dL POC Glucose 209 H 208 H (70-105) Calcium 8.0 L (8.4-10.2) mg/dL
--- NOTE | 2018-10-02 09:09 | Nuclear Medicine Report ---
LUNG SCAN, VENTILATION AND PERFUSION: History: Hypoxemia. Technique: 5mci of Tc99m MAA was infused for the perfusion images. 15mci XE 133 gas was inhaled for the ventilatory images. Correlation is made with a chest x-ray dated 10/02/18. Findings: Inhalation of Xenon gas demonstrates a normal distribution of the activity throughout both lungs. The wash out phases show no focal retention of activity. After injection of Technetium 99m macroaggregated albumin gamma camera imaging of the lungs in multiple projections demonstrates normal pulmonary contours with a homogeneous distribution of activity. No focal areas of perfusion deficiency are identified. IMPRESSION: Low probability for pulmonary embolus.
--- NOTE | 2018-10-02 09:10 | XRay Report ---
ROUTINE CHEST, TWO VIEWS: HISTORY: Hypoxemia. There is poor inspiratory effort which limits this exam. The trachea, heart, mediastinal contour, lung carr and bony thorax are unremarkable. IMPRESSION: Grossly negative expiratory chest x-ray.
[2018-10-02] MEDS: HCTZ PO SCH (09:22)
[2018-10-02] MEDS: ZESTRIL PO SCH (09:22)
[2018-10-02] MEDS: MIRALAX 3350 PO SCH (09:23)
[2018-10-02] MEDS: SODIUM CHLORIDE FLUSH SYRINGE 10 ML IV SCH ×2 (09:26→22:06)
[2018-10-02 10:02] LABS: Basophils % (Auto) 0.5 % (0.0-1.8); Eosinophils # (Auto) 0.1 K/mm3 (0.0-0.4); Eosinophils % (Auto) 1.2 % (0.0-4.3); Hematocrit 30.3 % (30.3-42.9); Hemoglobin 10.2 gm/dl (10.1-14.3); Lymphocytes # (Auto) 1.9 K/mm3 (1.2-5.4); Lymphocytes % (Auto) 28.8 % (13.4-35.0); Mean Corpuscular HGB Conc 34 % (30-34); Mean Corpuscular Volume 87 fl (79-97); Monocytes # (Auto) 0.3 K/mm3 (0.0-0.8); Platelet Count 161 K/mm3 (140-440); Red Cell Distribution Width 14.5 % (13.2-15.2)
[2018-10-02] MEDS: ZOFRAN IV PRN ×2 (12:19→20:58)
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
--- NOTE | 2018-10-02 18:52 | XRay Report ---
FINAL REPORT EXAM: XR ABDOMEN 1V AP HISTORY: abdominal pain TECHNIQUE: Supine AP view of the abdomen. PRIORS: None. FINDINGS: The bowel gas pattern appears normal. There are surgical clips in the right upper quadrant. The bones are unremarkable. IMPRESSION: Normal bowel gas pattern.
--- NOTE | 2018-10-02 20:33 | Progress Note ---
Assessment and Plan Patient alert, awake. No complaint of chest pain, shortness of breath or cough.Patient resting on O2. O2 saturation 95%.Patients blood gases reported PH 7.4, PCO2 36, PO2 54, HCO3 22, O2 saturation 88%. Patient is candidate for home O2. Recommend O2 2 litres via nasal canula.Perfusion lung scan reported low probability for pulmonary emboli. - Patient Problems (1) Acidosis Current Visit: Yes Status: Acute Plan to address problem: Improving. Bicarb 26 Anion gap 17. (2) Altered mental status Current Visit: Yes Status: Acute Qualifiers: Altered mental status type: transient alteration of awareness Qualified Co de(s): R40.4 - Transient alteration of awareness Plan to address problem: Improved. Management as per primary care. (3) Diabetic ketoacidosis Current Visit: Yes Status: Acute Qualifiers: Diabetes mellitus type: type 1 Diabetes mellitus complication detail: without coma Qualified Code(s): E10.10 - Type 1 diabetes mellitus with ketoacidosis without coma Plan to address problem: Management as per primary care. (4) Leukocytosis Current Visit: Yes Status: Acute Qualifiers: Leukocytosis type: unspecified Qualified Code(s): D72.829 - Elevated white blood cell count, unspecified Plan to address problem: Improved. to days WBC 6.6. (5) Hypoxemia Current Visit: Yes Status: Acute Plan to address problem: Patient is candidate for home O2. Recommend O2 2 litres via nasal canula. Subjective Date of service: 10/02/18 Principal diagnosis: SIRS Interval history: Patient alert, awake. No complaint of chest pain, shortness of breath or c ough.Patient resting on O2. O2 saturation 95%. Patients blood gases reported PH 7.4, PCO2 36, PO2 54, HCO3 22, O2 saturation 88%. Patient is candidate for home O2. Recommend O2 2 litres via nasal canula. Patients perfusion lung scan reported low probability for pulmonary emboli. Objective Vital Signs - 12hr 10/02/18 10/02/18 10/02/18 09:17 09:22 11:46 Temperature 98.4 F Pulse Rate 75 75 104 H Respiratory 18 Rate Blood Pressure 145/95 145/95 157/102 O2 Sat by Pulse 99 98 Oximetry 10/02/18 17:18 Temperature 98.8 F Pulse Rate 109 H Respiratory 20 Rate Blood Pressure 140/81 O2 Sat by Pulse 96 Oximetry Constitutional: no acute distress, alert Eyes: non-icteric Neck: supple, no lymphadenopathy Ascultation: Bilateral: clear Cardiovascular: regular rate and rhythm Gastrointestinal: normoactive bowel sounds, soft, non-tender Integumentary: normal Extremities: no cyanosis, no edema Neurologic: normal mental status, non-focal exam, pupils equal and round, CN II- XII normal Psychiatric: mood appropriate CBC and BMP: 10/02/18 09:45 10/02/18 04:26 ABG, PT/INR, D-dimer: ABG POC ABG pH 7.403 (7.35-7.45) 10/01/18 11:44 POC ABG pCO2 35.6 (35-45) 10/01/18 11:44 POC ABG pO2 54 (80-105) L 10/01/18 11:44 POC ABG HCO3 22.2 10/01/18 11:44 POC ABG Total CO2 23 10/01/18 11:44 POC ABG O2 Sat 88 10/01/18 11:44 Abnormal lab findings: Abnormal Labs 09/28/18 09/28/18 09/28/18 09:28 09:49 09:49 WBC 29.7 H RBC Hgb 14.4 H Hct 51.1 H MCV 102 H MCHC 28 L RDW 15.5 H Plt Count 602 H Seg Neutrophils % Seg Neuts % (Manual) 83.0 H Lymphocytes % (Manual) 8.0 L Seg Neutrophils # Man 24.7 H Monocytes # (Manual) 2.1 H Basophils # (Manual) 0.3 H POC ABG pO2 VBG pH Sodium 126 L Potassium 8.2 H* Chloride 81.7 L Carbon Dioxide 4 L* BUN 31 H Creatinine 1.9 H Glucose 1000 H* POC Glucose > 500 H Hemoglobin A1c Lactic Acid Calcium Phosphorus Magnesium Ammonia C-Reactive Protein Total Protein 8.5 H 09/28/18 09/28/18 09/28/18 09:49 09:49 12:44 WBC RBC Hgb Hct MCV MCHC RDW Plt Count Seg Neutrophils % Seg Neuts % (Manual) Lymphocytes % (Manual) Seg Neutrophils # Man Monocytes # (Manual) Basophils # (Manual) POC ABG pO2 VBG pH 6.874 L* Sodium Potassium Chloride Carbon Dioxide BUN Creatinine Glucose POC Glucose Hemoglobin A1c Lactic Acid Calcium Phosphorus 9.60 H Magnesium 2.40 H Ammonia 114.0 H C-Reactive Protein Total Protein 09/28/18 09/28/18 09/28/18 12:44 12:44 13:48 WBC RBC Hgb Hct MCV MCHC RDW Plt Count Seg Neutrophils % Seg Neuts % (Manual) Lymphocytes % (Manual) Seg Neutrophils # Man Monocytes # (Manual) Basophils # (Manual) POC ABG pO2 VBG pH Sodium 136 L D 146 H D Potassium 7.0 H* 5.4 H D Chloride 95.3 L Carbon Dioxide 3 L* 4 L* BUN 31 H 28 H Creatinine 1.8 H 1.4 H Glucose 896 H* 595 H* POC Glucose Hemoglobin A1c Lactic Acid 3.40 H* Calcium 7.9 L 6.8 L Phosphorus Magnesium Ammonia C-Reactive Protein Total Protein 09/28/18 09/28/18 09/28/18 15:06 15:17 16:57 WBC RBC Hgb Hct MCV MCHC RDW Plt Count Seg Neutrophils % Seg Neuts % (Manual) Lymphocytes % (Manual) Seg Neutrophils # Man Monocytes # (Manual) Basophils # (Manual) POC ABG pO2 VBG pH Sodium 146 H 146 H Potassium Chloride 112.0 H 109.2 H Carbon Dioxide 5 L* 5 L* BUN 23 H 22 H Creatinine Glucose 446 H 339 H POC Glucose Hemoglobin A1c Lactic Acid Calcium 6.0 L 6.5 L Phosphorus Magnesium Ammonia C-Reactive Protein 2.10 H Total Protein 09/28/18 09/28/18 09/28/18 18:15 19:23 20:29 WBC RBC Hgb Hct MCV MCHC RDW Plt Count Seg Neutrophils % Seg Neuts % (Manual) Lymphocytes % (Manual) Seg Neutrophils # Man Monocytes # (Manual) Basophils # (Manual) POC ABG pO2 VBG pH Sodium Potassium Chloride Carbon Dioxide BUN Creatinine Glucose POC Glucose 263 H 232 H 206 H Hemoglobin A1c Lactic Acid Calcium Phosphorus Magnesium Ammonia C-Reactive Protein Total Protein 09/28/18 09/28/18 09/28/18 21:38 21:45 21:45 WBC RBC Hgb Hct MCV MCHC RDW Plt Count Seg Neutrophils % Seg Neuts % (Manual) Lymphocytes % (Manual) Seg Neutrophils # Man Monocytes # (Manual) Basophils # (Manual) POC ABG pO2 VBG pH Sodium 149 H Potassium 5.1 H Chloride 113.8 H Carbon Dioxide 11 L BUN Creatinine Glucose 223 H POC Glucose 238 H Hemoglobin A1c Lactic Acid 2.40 H* Calcium 6.9 L Phosphorus Magnesium Ammonia C-Reactive Protein Total Protein 09/28/18 09/28/18 09/28/18 22:34 23:04 23:52 WBC RBC Hgb Hct MCV MCHC RDW Plt Count Seg Neutrophils % Seg Neuts % (Manual) Lymphocytes % (Manual) Seg Neutrophils # Man Monocytes # (Manual) Basophils # (Manual) POC ABG pO2 VBG pH Sodium Potassium Chloride Carbon Dioxide BUN Creatinine Glucose POC Glucose 216 H 208 H Hemoglobin A1c Lactic Acid 2.80 H* Calcium Phosphorus Magnesium Ammonia C-Reactive Protein Total Protein 09/29/18 09/29/18 09/29/18 00:00 00:41 00:53 WBC RBC Hgb Hct MCV MCHC RDW Plt Count Seg Neutrophils % Seg Neuts % (Manual) Lymphocytes % (Manual) Seg Neutrophils # Man Monocytes # (Manual) Basophils # (Manual) POC ABG pO2 VBG pH Sodium Potassium Chloride Carbon Dioxide BUN Creatinine Glucose POC Glucose 227 H Hemoglobin A1c Lactic Acid 3.70 H* 4.20 H* Calcium Phosphorus Magnesium Ammonia C-Reactive Protein Total Protein 09/29/18 09/29/18 09/29/18 01:40 02:48 03:58 WBC RBC Hgb Hct MCV MCHC RDW Plt Count Seg Neutrophils % Seg Neuts % (Manual) Lymphocytes % (Manual) Seg Neutrophils # Man Monocytes # (Manual) Basophils # (Manual) POC ABG pO2 VBG pH Sodium Potassium Chloride Carbon Dioxide BUN Creatinine Glucose POC Glucose 226 H 173 H 153 H Hemoglobin A1c Lactic Acid Calcium Phosphorus Magnesium Ammonia C-Reactive Protein Total Protein 09/29/18 09/29/18 09/29/18 04:09 04:09 05:45 WBC RBC Hgb Hct MCV MCHC RDW Plt Count Seg Neutrophils % Seg Neuts % (Manual) Lymphocytes % (Manual) Seg Neutrophils # Man Monocytes # (Manual) Basophils # (Manual) POC ABG pO2 VBG pH Sodium 151 H Potassium 3.3 L D Chloride 116.4 H Carbon Dioxide 15 L BUN Creatinine Glucose 128 H POC Glucose Hemoglobin A1c Lactic Acid 3.80 H* 3.30 H* Calcium 7.5 L Phosphorus Magnesium Ammonia C-Reactive Protein Total Protein 09/29/18 09/29/18 09/29/18 05:52 06:58 07:28 WBC RBC Hgb Hct MCV MCHC RDW Plt Count Seg Neutrophils % Seg Neuts % (Manual) Lymphocytes % (Manual) Seg Neutrophils # Man Monocytes # (Manual) Basophils # (Manual) POC ABG pO2 VBG pH Sodium Potassium Chloride Carbon Dioxide BUN Creatinine Glucose POC Glucose 165 H 128 H Hemoglobin A1c Lactic Acid 2.70 H* Calcium Phosphorus Magnesium Ammonia C-Reactive Protein Total Protein 09/29/18 09/29/18 09/29/18 08:06 08:23 09:15 WBC RBC Hgb Hct MCV MCHC RDW Plt Count Seg Neutrophils % Seg Neuts % (Manual) Lymphocytes % (Manual) Seg Neutrophils # Man Monocytes # (Manual) Basophils # (Manual) POC ABG pO2 VBG pH Sodium 152 H Potassium Chloride 120.7 H Carbon Dioxide 15 L BUN Creatinine Glucose 126 H POC Glucose 143 H 154 H Hemoglobin A1c Lactic Acid Calcium 7.6 L Phosphorus Magnesium Ammonia C-Reactive Protein Total Protein 09/29/18 09/29/18 09/29/18 10:13 11:43 13:51 WBC RBC Hgb Hct MCV MCHC RDW Plt Count Seg Neutrophils % Seg Neuts % (Manual) Lymphocytes % (Manual) Seg Neutrophils # Man Monocytes # (Manual) Basophils # (Manual) POC ABG pO2 VBG pH Sodium 150 H Potassium Chloride 116.9 H Carbon Dioxide 14 L BUN Creatinine Glucose 254 H POC Glucose 126 H 124 H Hemoglobin A1c Lactic Acid Calcium 7.7 L Phosphorus Magnesium Ammonia C-Reactive Protein Total Protein 09/29/18 09/29/18 09/30/18 16:31 21:32 07:34 WBC RBC Hgb Hct MCV MCHC RDW Plt Count Seg Neutrophils % Seg Neuts % (Manual) Lymphocytes % (Manual) Seg Neutrophils # Man Monocytes # (Manual) Basophils # (Manual) POC ABG pO2 VBG pH Sodium Potassium Chloride Carbon Dioxide BUN Creatinine Glucose POC Glucose 364 H 309 H 318 H Hemoglobin A1c Lactic Acid Calcium Phosphorus Magnesium Ammonia C-Reactive Protein Total Protein 09/30/18 09/30/18 09/30/18 11:44 16:30 19:28 WBC RBC Hgb Hct MCV MCHC RDW Plt Count Seg Neutrophils % Seg Neuts % (Manual) Lymphocytes % (Manual) Seg Neutrophils # Man Monocytes # (Manual) Basophils # (Manual) POC ABG pO2 VBG pH Sodium Potassium Chloride Carbon Dioxide BUN Creatinine Glucose POC Glucose 292 H 221 H Hemoglobin A1c 14.2 H Lactic Acid Calcium Phosphorus Magnesium Ammonia C-Reactive Protein Total Protein 09/30/18 09/30/18 10/01/18 20:42 21:41 03:41 WBC RBC Hgb Hct MCV MCHC RDW Plt Count Seg Neutrophils % 77.2 H Seg Neuts % (Manual) Lymphocytes % (Manual) Seg Neutrophils # Man Monocytes # (Manual) Basophils # (Manual) POC ABG pO2 VBG pH Sodium Potassium 3.5 L Chloride Carbon Dioxide BUN 6 L Creatinine Glucose 160 H POC Glucose 168 H Hemoglobin A1c Lactic Acid Calcium Phosphorus Magnesium Ammonia C-Reactive Protein Total Protein 10/01/18 10/01/18 10/01/18 07:48 11:44 12:25 WBC RBC Hgb Hct MCV MCHC RDW Plt Count Seg Neutrophils % Seg Neuts % (Manual) Lymphocytes % (Manual) Seg Neutrophils # Man Monocytes # (Manual) Basophils # (Manual) POC ABG pO2 54 L VBG pH Sodium Potassium Chloride Carbon Dioxide BUN Creatinine Glucose POC Glucose 230 H 213 H Hemoglobin A1c Lactic Acid Calcium Phosphorus Magnesium Ammonia C-Reactive Protein Total Protein 10/01/18 10/01/18 10/02/18 16:33 21:28 04:26 WBC RBC Hgb Hct MCV MCHC RDW Plt Count Seg Neutrophils % Seg Neuts % (Manual) Lymphocytes % (Manual) Seg Neutrophils # Man Monocytes # (Manual) Basophils # (Manual) POC ABG pO2 VBG pH Sodium Potassium 3.0 L Chloride Carbon Dioxide BUN 4 L Creatinine 0.6 L Glucose 217 H POC Glucose 136 H 209 H Hemoglobin A1c Lactic Acid Calcium 8.0 L Phosphorus Magnesium Ammonia C-Reactive Protein Total Protein 10/02/18 10/02/18 10/02/18 08:04 09:45 11:14 WBC RBC 3.50 L Hgb Hct MCV MCHC RDW Plt Count Seg Neutrophils % Seg Neuts % (Manual) Lymphocytes % (Manual) Seg Neutrophils # Man Monocytes # (Manual) Basophils # (Manual) POC ABG pO2 VBG pH Sodium Potassium Chloride Carbon Dioxide BUN Creatinine Glucose POC Glucose 208 H 278 H Hemoglobin A1c Lactic Acid Calcium Phosphorus Magnesium Ammonia C-Reactive Protein Total Protein 10/02/18 16:35 WBC RBC Hgb Hct MCV MCHC RDW Plt Count Seg Neutrophils % Seg Neuts % (Manual) Lymphocytes % (Manual) Seg Neutrophils # Man Monocytes # (Manual) Basophils # (Manual) POC ABG pO2 VBG pH Sodium Potassium Chloride Carbon Dioxide BUN Creatinine Glucose POC Glucose 207 H Hemoglobin A1c Lactic Acid Calcium Phosphorus Magnesium Ammonia C-Reactive Protein Total Protein Chest x-ray: report reviewed (Reported negative chest xray), image reviewed Additional Studies: Perfusion lung scan reported low probability for pulmonary emboli.
[2018-10-02] MEDS: LOVENOX SUB-Q SCH (22:05)
[2018-10-02] MEDS: ABILIFY PO SCH (22:06)
[2018-10-02] MEDS: LANTUS SUB-Q SCH (22:56)
[2018-10-03 05:31] LABS: BUN/Creatinine Ratio 5; Blood Urea Nitrogen 3 mg/dL (7-17); Calcium 8.3 mg/dL (8.4-10.2); Hemolysis Index 6
[2018-10-03] MEDS ORDERED: K-DUR PO ONE (05:40)
[2018-10-03] MEDS: KCL 10MEQ/100ML 10 MEQ/100 ML BAG IV SCH ×2 (06:06→08:27)
[2018-10-03] MEDS: HumaLOG SUB-Q SCH ×4 (08:27→12:34)
[2018-10-03] MEDS: ZOFRAN IV PRN (08:41)
[2018-10-03] MEDS: SENOKOT S PO PRN (08:41)
--- NOTE | 2018-10-03 09:31 | Progress Note ---
Assessment and Plan Cultures: 09/28/2018 blood cultures: No growth A/P: 38-year-old female with diabetes mellitus type 1, hypertension, admitted with: 1) SIRS: Likely due to severe acidosis from uncontrolled diabetes and associated diabetic ketoacidosis. Chest x-ray without any evidence of pneumonia. UA not c/w UTI. Patient denies any fevers or upper respiratory symptoms prior to admission. Leucocytosis is likely reactive, now resolved. 2) Metabolic acidosis: Lactic acidosis, DKA 3) Diabetes mellitus type 1 uncontrolled 4) Hyponatremia followed by hypernatremia: improving. 5) Acute kidney injury: Improved Recs: Monitor off antibiotics Ok to discharge from ID standpoint Valentine Mac NP [facility] [employer] M: [phone] O:[phone] Subjective Date of service: 10/03/18 Principal diagnosis: SIRS Interval history: Patient seen and examined. Denied generalized pain, SOB, fever or rashes. Stated that she was feeling better today and ready to go home. Nurses notes, labs and reports reviewed, discussed with patient. Mother at bedside. Objective - Exam Narrative Exam: General appearance: Alert in NAD, conversant Eyes: anicteric sclerae, moist conjunctivae; no lid-lag; PERRLA HENT: Atraumatic; oropharynx clear with moist mucous membranes and no mucosal ulcerations/no oral thrush; normal hard and soft palate. Normal external ears. Neck: Trachea midline; supple, no thyromegaly or lymphadenopathy Lungs: CTA, with normal respiratory effort and no intercostal retractions CV: RRR, no murmurs Abdomen: Soft, non-tender; no masses or hepatosplenomegaly Extremities: No peripheral edema or extremity lymphadenopathy Skin: Normal temperature, turgor and texture; no rash, ulcers or subcutaneous nodules Psych: Appropriate affect, alert and oriented to person, place and time. Neuro: alert and oriented x 3. Moving all extermities Lines: - Constitutional Vitals: Vital Signs Temp Pulse Resp BP Pulse Ox 98.2 F 85 16 119/71 99 10/03/18 05:23 10/03/18 05:23 10/03/18 05:23 10/03/18 05:23 10/03/18 05:23 Temperature -Last 24 Hours Temperature 98.2 F Temperature 98.7 F Temperature 98.8 F Temperature 98.4 F - Labs CBC & Chem 7: 10/02/18 09:45 10/03/18 11:53 Labs: Abnormal lab results 10/02/18 10/02/18 10/02/18 Range/Units 09:45 11:14 16:35 RBC 3.50 L (3.65-5.03) M/mm3 Potassium (3.6-5.0) mmol/L Chloride (98-107) mmol/L Carbon Dioxide (22-30) mmol/L BUN (7-17) mg/dL Creatinine (0.7-1.2) mg/dL Glucose (65-100) mg/dL POC Glucose 278 H 207 H (70-105) Calcium (8.4-10.2) mg/dL 10/02/18 10/03/18 10/03/18 Range/Units 21:27 04:35 07:38 RBC (3.65-5.03) M/mm3 Potassium 2.7 L* (3.6-5.0) mmol/L Chloride 94.9 L (98-107) mmol/L Carbon Dioxide 34 H D (22-30) mmol/L BUN 3 L (7-17) mg/dL Creatinine 0.6 L (0.7-1.2) mg/dL Glucose 194 H (65-100) mg/dL POC Glucose 248 H 250 H (70-105) Calcium 8.3 L (8.4-10.2) mg/dL
[2018-10-03] MEDS ORDERED: KCL 40 MEQ in NACL 0.45% 500 ML IV ONE ×2 (10:00→16:00)
--- NOTE | 2018-10-03 10:20 | Fluoroscopy Report ---
FLUOROSCOPY THERAPEUTIC ENEMA History: Constipation. Findings: 1 L of Gastrografin contrast agent was administered into the colon via a rectal tube. There are several filling defects in the colon consistent with stool. No obvious stricture, mass or inflammatory changes are identified although this is not a diagnostic exam. 10 fluoroscopic images were captured. Impression: Successful therapeutic enema with Gastrografin. Mild fecal retention. No obvious colonic lesion.
[2018-10-03] MEDS: SODIUM CHLORIDE FLUSH SYRINGE 10 ML IV SCH (11:40)
[2018-10-03] MEDS: HCTZ PO SCH (11:40)
[2018-10-03] MEDS: ZESTRIL PO SCH (11:40)
[2018-10-03] MEDS: MIRALAX 3350 PO SCH (11:40)
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
[2018-10-03 12:57] VITALS: BP 155/85
== END 2018-10-03 15:00 | disposition home or self-care (01) | DRG 637 ==
LOC: ED 09:17 → CC1 11:50 → EEVIPCON 11:50 → 3A 09-29 14:13
PROVIDERS: ADMIT Internal Medicine; ATTEND Internal Medicine
PROC: 06HM33Z Insertion of Infusion Device into Right Femoral Vein, Percutaneous Approach (ICD-10-PCS; principal; 2018-09-28)
PROC: B54BZZA Ultrasonography of Right Lower Extremity Veins, Guidance (ICD-10-PCS; 2018-09-28)
PROC: 4A033R1 Measurement of Arterial Saturation, Peripheral, Percutaneous Approach (ICD-10-PCS; 2018-10-01)
PROC: 3E1H78Z Irrigation of Lower GI using Irrigating Substance, Via Natural or Artificial Opening (ICD-10-PCS; 2018-10-03)
DX: E10.10 Type 1 diabetes mellitus with ketoacidosis without coma (principal); R65.11 Systemic inflammatory response syndrome (SIRS) of non-infectious origin with acute organ dysfunction; N17.9 Acute kidney failure, unspecified; E87.1 Hypo-osmolality and hyponatremia; E87.0 Hyperosmolality and hypernatremia; G93.49 Other encephalopathy; I10 Essential (primary) hypertension; E66.9 Obesity, unspecified; E87.5 Hyperkalemia; E87.6 Hypokalemia; K59.00 Constipation, unspecified; F41.9 Anxiety disorder, unspecified; Z83.3 Family history of diabetes mellitus; Z82.49 Family history of ischemic heart disease and other diseases of the circulatory system; Z68.27 Body mass index [BMI] 27.0-27.9, adult
CPT/HCPCS: 36415; 36600; 71045; 71046; 74018; 74283; 78582; 80048; 80053; 80307; 80320; 81001; 82140; 82803; 82805; 82962; 83036; 83735; 84100; 84132; 84703; 85007; 85025; 86140; 87040; 87086; 93005; 93010; 94760; 96361; 96365; 96366; 96367; 96368; 96375; 96376; G0378; A9540; A9558; G0480; J0360; J0610; J0692; J0696; J1650; J1815; J2270; J2405; J3370; J3480; J7030; J7040; Q9963

== ENCOUNTER 2019-10-22 00:05 | Emergency (ER) | payer MEDICARE ==
--- NOTE | 2019-10-22 02:12 | XRay Report ---
CHEST 1 VIEW INDICATION: CHESTPAIN. COMPARISON: 10/02/18 FINDINGS: Support devices: None. Heart: Within normal limits. Lungs/Pleura: No acute air space or interstitial disease. Calcified right hilar lymph node and tiny c alcified granuloma in the right midlung again noted. Additional findings: None. IMPRESSION: 1. No acute findings. Signer Name: Adolfo Liu MD Signed: 10/22/2019 2:07 AM Workstation Name: [id number]
[2019-10-22] MEDS ORDERED: MORPHINE 4 MG/1 ML INJ IV ONE (07:36)
[2019-10-22] MEDS ORDERED: SODIUM CHLORIDE 0.9% 1000 ML 1,000 ML IV ONE (07:36)
[2019-10-22] MEDS ORDERED: ONDANSETRON 4 MG/2 ML INJ IV ONE (07:36)
[2019-10-22 08:00] LABS: Basophils % (Auto) 0.6 % (0.0-1.8); Eosinophils # (Auto) 0.1 K/mm3 (0.0-0.4); Eosinophils % (Auto) 1.7 % (0.0-4.3); Hematocrit 37.4 % (30.3-42.9); Hemoglobin 12.4 gm/dl (10.1-14.3); Lymphocytes # (Auto) 1.7 K/mm3 (1.2-5.4); Lymphocytes % (Auto) 28.4 % (13.4-35.0); Mean Corpuscular HGB Conc 33 % (30-34); Mean Corpuscular Volume 88 fl (79-97); Monocytes # (Auto) 0.3 K/mm3 (0.0-0.8); Monocytes % (Auto) 5.4 % (0.0-7.3); Platelet Count 249 K/mm3 (140-440); Red Blood Count 4.25 M/mm3 (3.65-5.03); Red Cell Distribution Width 13.8 % (13.2-15.2)
[2019-10-22 08:10] LABS: BUN/Creatinine Ratio 16; Blood Urea Nitrogen 13 mg/dL (7-17); Calcium 8.9 mg/dL (8.4-10.2); Hemolysis Index 2
[2019-10-22 08:16] LABS: Alanine Aminotransferase 14 units/L (7-56)
[2019-10-22 08:21] LABS: Bilirubin,Direct < 0.2 mg/dL (0-0.2)
--- NOTE | 2019-10-22 09:08 | Emergency Department Report ---
ED Fall HPI - General Chief Complaint: Chest Pain Stated Complaint: CHEST PRESSURE Time Seen by Provider: 10/22/19 07:24 Source: patient Mode of arrival: Ambulatory - History of Present Illness Initial Comments: This is a 39-year-old female nontoxic, well nourished in appearance, no acute signs of distress presents to the ED with c/o of abdominal and chest pain status post fall. Stated had a ground level trip and fall. Patient stated that 4 days ago she had a trip and fall and landed on her chest and abdomen area. Denies any LOC. The patient stated that since then pain is worsening and now has some difficulty breathing. Patient stated pain is aggravated with palpation and deep inspirations resolve with rest. Patient also stated as nausea without any vomiting. Denies any head injuries. Denies any neck pain or trauma. Denies any other complaints. Patient denies any fever, chills, vomiting, headache, stiff neck, numbness or tingling. Patient denies any back pains. Denies any allergies. PMH includes HTN and DM. Stated has not taken her blood pressure medications. MD Complaint: fall -: days(s) (4) When Fall Occurred: unsure Fall Witnessed: no Loss of Consciousness: none Prolonged Down Time?: no Symptoms Prior to Fall: none Location: chest, abdomen Severity: mild Severity scale (0 -10): 8 Quality: aching Context: tripped/slipped Associated Symptoms: chest paint, abdominal pain. denies: headache, neck pain, numbness, weakness, shortness of breath, hematuria, unable to walk, lightheaded, vertigo, confusion - Related Data Previous Rx's Medication Instructions Recorded Last Taken Type ALPRAZolam [Xanax] 0.25 mg PO DAILY PRN #10 tablet 10/02/18 Unknown Rx ARIPiprazole [Aripiprazole] 10 mg PO HS #30 tablet 10/02/18 Unknown Rx Insulin Glargine [Lantus VIAL] 40 units SUB-Q QHS #1 vial 10/02/18 Unknown Rx Lispro Insulin [HumaLOG] 13 unit SUB-Q AC #1 vial 10/02/18 Unknown Rx Polyethylene Glycol 3350 [Miralax 17 gm PO QDAY #30 powd.pack 10/02/18 Unknown Rx 3350] Potassium Chloride [K-Dur] 20 meq PO QDAY #7 tablet 10/02/18 Unknown Rx Sennosides/Docusate [Senokot S] 2 tab PO Q12H PRN #60 tablet 10/02/18 Unknown Rx bisacodyL [Dulcolax tab] 5 mg PO HS PRN #30 tablet 10/02/18 Unknown Rx hydroCHLOROthiazide [HCTZ] 25 mg PO QDAY #30 tablet 10/02/18 Unknown Rx lisinopriL [Zestril TAB] 40 mg PO DAILY #30 tablet 10/02/18 Unknown Rx Acetaminophen/Codeine [Tylenol 1 tab PO Q6H PRN #12 tab 10/22/19 Unknown Rx /Codeine # 3 tab] Allergies Allergy/AdvReac Type Severity Reaction Status Date / Time No Known Allergies Allergy Unverified 09/28/18 10:50 ED Review of Systems ROS: Stated complaint: CHEST PRESSURE Other details as noted in HPI Constitutional: denies: chills, fever Eyes: denies: eye pain, eye discharge, vision change ENT: denies: ear pain, throat pain Respiratory: denies: cough, shortness of breath, wheezing Cardiovascular: chest pain. denies: palpitations, dyspnea on exertion, orthopnea, edema, syncope, paroxysmal nocturnal dyspnea Endocrine: no symptoms reported Gastrointestinal: abdominal pain, nausea. denies: vomiting, diarrhea Genitourinary: denies: urgency, dysuria, discharge Musculoskeletal: denies: back pain, joint swelling, arthralgia Skin: denies: rash, lesions Neurological: denies: headache, weakness, paresthesias Psychiatric: denies: anxiety, depression Hematological/Lymphatic: denies: easy bleeding, easy bruising ED Past Medical Hx - Past Medical History Previous Medical History?: Yes Hx Hypertension: Yes Hx Congestive Heart Failure: No Hx Diabetes: Yes Hx Asthma: No Hx COPD: No Hx HIV: No - Surgical History Past Surgical History?: Yes Additional Surgical History: Pancreas surgery - Social History Smoking Status: Never Smoker Substance Use Type: None - Medications Home Medications: Home Medications Medication Instructions Recorded Confirmed Last Taken Type ALPRAZolam [Xanax] 0.25 mg PO DAILY PRN #10 tablet 10/02/18 Unknown Rx ARIPiprazole [Aripiprazole] 10 mg PO HS #30 tablet 10/02/18 Unknown Rx Insulin Glargine [Lantus VIAL] 40 units SUB-Q QHS #1 vial 10/02/18 Unknown Rx Lispro Insulin [HumaLOG] 13 unit SUB-Q AC #1 vial 10/02/18 Unknown Rx Polyethylene Glycol 3350 [Miralax 17 gm PO QDAY #30 powd.pack 10/02/18 Unknown Rx 3350] Potassium Chloride [K-Dur] 20 meq PO QDAY #7 tablet 10/02/18 Unknown Rx Sennosides/Docusate [Senokot S] 2 tab PO Q12H PRN #60 tablet 10/02/18 Unknown Rx bisacodyL [Dulcolax tab] 5 mg PO HS PRN #30 tablet 10/02/18 Unknown Rx hydroCHLOROthiazide [HCTZ] 25 mg PO QDAY #30 tablet 10/02/18 Unknown Rx lisinopriL [Zestril TAB] 40 mg PO DAILY #30 tablet 10/02/18 Unknown Rx Acetaminophen/Codeine [Tylenol 1 tab PO Q6H PRN #12 tab 10/22/19 Unknown Rx /Codeine # 3 tab] ED Physical Exam - General Limitations: No Limitations General appearance: alert, in no apparent distress - Head Head exam: Present: atraumatic, normocephalic - Eye Eye exam: Present: normal appearance, PERRL, EOMI - Neck Neck exam: Present: normal inspection, full ROM. Absent: tenderness, meningismus, lymphadenopathy - Respiratory Respiratory exam: Present: normal lung sounds bilaterally, chest wall tenderness (midsterum). Absent: respiratory distress, wheezes, rales, rhonchi, stridor, accessory muscle use, decreased breath sounds, prolonged expiratory - Cardiovascular Cardiovascular Exam: Present: regular rate, normal rhythm, normal heart sounds. Absent: irregular rhythm - GI/Abdominal GI/Abdominal exam: Present: soft, tenderness (abdominal area), normal bowel sounds. Absent: distended, guarding, rebound, rigid, diminished bowel sounds - Extremities Exam Extremities exam: Present: normal inspection, full ROM - Back Exam Back exam: Present: normal inspection, full ROM. Absent: tenderness, CVA tenderness (R), CVA tenderness (L), muscle spasm, paraspinal tenderness, vertebral tenderness, rash noted - Neurological Exam Neurological exam: Present: alert, oriented X3, normal gait - Psychiatric Psychiatric exam: Present: normal affect, normal mood - Skin Skin exam: Present: warm, dry, intact, normal color. Absent: rash ED Course Vital Signs 10/22/19 10/22/19 10/22/19 00:28 01:29 06:35 Temperature 98.1 F 98.7 F Pulse Rate 114 H 112 H 102 H Respiratory 18 18 16 Rate Blood Pressure 215/115 Blood Pressure 186/98 179/102 [Left] O2 Sat by Pulse 100 100 100 Oximetry 10/22/19 10:38 Temperature 97.4 F L Pulse Rate 91 H Respiratory 16 Rate Blood Pressure Blood Pressure 167/104 [Left] O2 Sat by Pulse 99 Oximetry - Reevaluation(s) Reevaluation #1: 10/22/19 09:15 Patient is speaking in full sentences with no signs of distress noted. - Consultations Consultation #1: 10/22/19 10:42 Patient has been consulted with Dr. Reagan about patient history, physical exam, and labs and agrees to ED plan of care and consult with Professor/Nurse Anesthetist. Consultation #2: 10/22/19 11:18 Patient has been consulted with Niki Diego ([employer]) and Garima (LORE[facility]) about patient history, physical exam, and labs/CT results and stated that reviewing the CT scan patient can be discharged with follow-up in 3-5 days. ED Medical Decision Making - Lab Data Result diagrams: 10/22/19 07:44 10/22/19 07:44 - Medical Decision Making This is a 39-year-old female that presents with contusion to chest and abdomen. Patient is stable and was examined by me. Labs has been obtained and are unremarkable. CT scan of chest and abdomen with contrast obtained and dictated by radiologist. Patient was notified of the results. Patient was consulted with [employer] which was instructed patient to follow outpatient. Patient received medical treatment in the ER which stated his symptoms of pain has resolved subsided. Mother is present at the bedside is scheduled to the patient home after discharge due to possible drowsiness. According to [facility] HTN guidelines: (1) In ED patients with asymptomatic markedly elevated blood pressure, routine screening for acute target organ injury (eg, serum creatinine, urinalysis, ECG) is not required. (1) In patients with asymptomatic markedly elevated blood pressure, routine ED medical intervention is not required. (2) In select patient populations (eg, poor follow-up), emergency physicians may treat markedly elevated blood pressure in the ED and/or initiate therapy for long-t erm control. Patient was instructed to Follow-up with a primary care and [employer] doctor in 3-5 days or if symptoms worsen and continue return to emergency room as soon as possible. At time of discharge, the patient does not seem toxic or ill in appearance. No acute signs of distress noted. Patient agrees to discharge treatment plan of care. No further questions noted by the patient. Critical care attestation.: If time is entered above; I have spent that time in minutes in the direct care of this critically ill patient, excluding procedure time. ED Disposition Clinical Impression: Splenomegaly, Varices of spleen, Portal hypertension, Uncontrolled hypertension Chest wall contusion Qualifiers: Encounter type: initial encounter Laterality: unspecified laterality Qualified Code(s): S20.219A - Contusion of unspecified front wall of thorax, initial encounter Abdominal wall contusion Qualifiers: Encounter type: initial encounter Qualified Code(s): S30.1XXA - Contusion of abdominal wall, initial encounter Fall Qualifiers: Encounter type: initial encounter Qualified Code(s): W19.XXXA - Unspecified fall, initial encounter Disposition: DC- TO HOME OR SELFCARE Is pt being admited?: No Does the pt Need Aspirin: No Condition: Stable Instructions: Portal Hypertension (ED), Acetaminophen/Codeine (By mouth), Hypertension (ED) Additional Instructions: Follow-up with a primary care and [employer] doctor in 3-5 days or if symptoms worsen and continue return to emergency room as soon as possible. Do not operate any machinery while taking Tylenol with codeine as this may cause drowsiness. Keep a daily diary of your blood pressure and presented to primary care doctor. Continue taking blood pressure medication as prescribed by her primary care doctor. Prescriptions: Acetaminophen/Codeine [Tylenol /Codeine # 3 tab] 1 tab PO Q6H PRN #12 tab PRN Reason: Pain , Severe (7-10) Referrals: CHECO MEJIA MD [Primary Care Provider] - 3-5 Days PRIMARY MD JEFRY [Referring] - 3-5 Days KORTNEY CRAWLEY MD [Staff Physician] - 3-5 Days HAILEE TAVAREZ MD [Staff Physician] - 3-5 Days [facility] [Provider Group] - 3-5 Days Forms: Work/School Release Form(ED)
--- NOTE | 2019-10-22 09:30 | Cat Scan Report ---
CT CHEST WITH CONTRAST INDICATION : MAIN: pain s/p fall 100 ml Omni 300. TECHNIQUE: 100 mL of intravenous contrast administered. Consent was obtained prior to the administra tion of the contrast. All CT scans at this location are performed using CT dose reduction for ALARA b y means of automated exposure control. COMPARISON: No relevant comparison imaging. FINDINGS: Lungs: A 6 mm calcified granuloma the right upper lobe. The lungs are otherwise clear. No pneumothora x. Pleura: No pleural effusion. Heart and great vessels: Normal. Mediastinum and lymph nodes: Unremarkable. Bones and soft tissues: Normal. No fracture. Upper abdomen: Unremarkable. IMPRESSION: 1. No apparent traumatic injury. 2. Old granulomatous disease with a 6 mm calcified granuloma of the right upper lobe. 3. No acute findings. Signer Name: Donavan Hensley MD Signed: 10/22/2019 9:26 AM Workstation Name: [id number]
--- NOTE | 2019-10-22 09:43 | Cat Scan Report ---
CT ABDOMEN AND PELVIS CONTRAST HISTORY: Pain after fall. COMPARISON: No relevant comparison imaging. TECHNIQUE: Routine abdominal and pelvic CT exam performed following intravenous contrast administrat ion.. 100 cc of Omnipaque 300 was injected intravenously without incident. Consent was obtained prior to the administration of contrast. All CT scans at this location are performed using CT dose reducti on for BOB by means of automated exposure control. FINDINGS: CT ABDOMEN: Lung Bases: No significant abnormality. Liver: Upper limits of normal in size. No liver nodularity or mass. Biliary: Status post cholecystectomy. Normal bile ducts. Stomach: Gastric varices and a prominent coronary vein. Spleen: Enlarged and measuring 12.6 cm maximum dimension. Splenic varices. Pancreas: The pancreatic body and tail are atrophic without calcifications. The pancreatic head is un remarkable. The pancreatic duct is nondilated. Adrenals: No significant abnormality. Kidneys: No significant abnormality. The renal collecting systems and ureters are nondilated. Lymphat ics: No lymphadenopathy. Vasculature: No significant abnormality. Bowel/Peritoneum: No significant abnormality. No free air. No free fluid. Normal appendix. CT PELVIC: : No significant abnormality. Normal uterus. Ovaries not well imaged. Lymphatics: No lymphadenopathy. Osseous Structures: No aggressive appearing osseous lesions. No fractures. Additional Findings: Healed midline upper abdominal surgical incision. Soft tissues are otherwise nor mal. IMPRESSION: 1. Portal hypertension with mild splenomegaly and gastric and splenic varices. 2. No other signs to suggest hepatic cirrhosis. 3. Atrophic pancreatic body and tail. No signs of acute or chronic pancreatitis. 4. No apparent traumatic injury. 5. Status post cholecystectomy. Signer Name: Donavan Hensley MD Signed: 10/22/2019 9:39 AM Workstation Name: [id number]
[2019-10-22 11:45] VITALS: BP 172/108
== END 2019-10-22 11:46 | disposition home or self-care (01) ==
LOC: ED 00:05
DX: S20.219A Contusion of unspecified front wall of thorax, initial encounter (principal); S30.1XXA Contusion of abdominal wall, initial encounter; R16.1 Splenomegaly, not elsewhere classified; I86.8 Varicose veins of other specified sites; K76.6 Portal hypertension; W19.XXXA Unspecified fall, initial encounter; Y93.89 Activity, other specified; Y92.89 Other specified places as the place of occurrence of the external cause; Y99.8 Other external cause status
CPT/HCPCS: 36415; 71045; 71260; 74177; 80048; 80076; 84703; 85025; 93005; 93010; 96374; 96375; 99284; J2270; J2405; J7030; Q9967